=== PATIENT | female | born 1975 | race Caucasian/White ===

== ENCOUNTER → 2017-08-18 07:18 | Outpatient (CLI) | payer OTHER, SELFPAY ==
--- NOTE | 2017-08-18 07:26 | BI_ITS ---
MAMMOGRAPHY - BILATERAL SCREENING REASON FOR EXAM: Female, 41 years old. Routine annual screening examination. PERTINENT HISTORY: Non-contributory. TECHNIQUE: Digital bilateral breast lizbeth (3D mammographic acquisition) in the CC and MLO projections. 2-D mediolateral oblique (MLO) and craniocaudad (CC) views of both breasts were obtained. CAD: Full Field Digital Mammography with Computer Added Detection was performed. COMPARISON: Comparison is made with prior study dated August 17, 2016 and August 15, 2015. FINDINGS: Breast Composition: The breasts are heterogeneously dense, which may obscure small masses. There are no dominant masses or suspicious calcifications. No other significant abnormalities are identified. There has been no significant change since the prior study. BI/SCREENING MAMM (CAD), BILAT IMPRESSION: Stable bilateral screening mammogram. Yearly follow-up mammogram recommended. (A) ASSESSMENT CATEGORY: BIRADS Category 1: Negative. A letter regarding these results will be sent to the patient by the facility within 30 days. Approximately 10% of breast cancers are not detected by mammography. A normal mammogram should not delay biopsy of a clinically suspicious abnormality. [id number] Electronically Signed: Bladimir Chan MD at 14:39 EDT Tel [phone], Service support ,
== END ==
PROVIDERS: Family Provider Family Medicine; PCP Family Medicine; Visit Provider Obstetrics & Gynecology
DX: Z12.31 Encounter for screening mammogram for malignant neoplasm of breast (principal)
CPT/HCPCS: 77063; 77067

== ENCOUNTER → 2018-03-08 07:14 | Outpatient (CLI) | payer OTHER, SELFPAY ==
[2018-03-08 10:41] LABS: AST(SGOT) 20 U/L (15-37); Alanine Aminotransfer ALT/SGPT 29 U/L (13-56); Albumin, Serum 3.8 g/dL (3.2-5.0); Alkaline Phosphatase 69 U/L (45-117); Anion Gap 9 (5-15); BUN 16 mg/dL (7-18); BUN/Creat Ratio 18.1 RATIO (10-20); Calcium,Total 8.7 mg/dL (8.5-10.1); Chloride 102 mmol/L (98-107); Cholesterol 183 mg/dL (200); Creatinine, Serum 0.89 mg/dL (0.55-1.02); EST Glomerular Filtration Rate 74 mL/min (>60); Est Glom Filt Rate - Afr Amer 89 mL/min (>60); Globulin 3.8 g/dL (2.2-4.2); Glucose 88 mg/dL (74-106); High Density Lipoprotein 38 mg/dL; Potassium 3.7 mmol/L (3.5-5.1); Protein, Total 7.6 g/dL (6.4-8.2); Sodium Level 139 mmol/L (136-145); Triglycerides 119 mg/dL; Very Low Density Lipoprotein 24 mg/dL (5-40)
== END ==
PROVIDERS: Family Provider Family Medicine; PCP Family Medicine; Referring Provider Family Medicine; Visit Provider Family Medicine
DX: I10 Essential (primary) hypertension (principal)
CPT/HCPCS: 36415; 80053; 80061

== ENCOUNTER 2018-08-19 14:03 | Observation (INO) | payer OTHER, SELFPAY ==
[2018-08-19] VITALS (11 sets, daily range): BP systolic 119–148; BP diastolic 70–91; PULSE 58–99; RESP 16–18; TEMP 36.1–37.3; O2SAT 96–98; BMI 36.5
--- NOTE | 2018-08-19 14:21 | CT_ITS ---
We are attempting to reach Rossy Trimble MD to discuss findings. An addendum with communication details will be sent when the communication is complete. STUDY: CT ABDOMEN AND PELVIS WITH CONTRAST REASON FOR EXAM: Female, 42 years old. Right lower quadrant pain RADIATION DOSAGE (If Supplied By Facility): CTDIvol = ( 1.82 ) mGy, DLP = ( 1297.83 ) mGycm TECHNIQUE: Transaxial images were obtained from the dome of the diaphragm to the symphysis pubis with oral contrast. 100ML IV/Oral Isovue 300 was administered. Sagittal and coronal images were reconstructed. Individualized dose optimization techniques were used for this CT. COMPARISON: None. FINDINGS: The visualized lung bases are unremarkable. The visualized portions of the heart are within normal limits. Normal liver. Normal gallbladder and extrahepatic biliary system. Normal spleen. Normal pancreas. Normal bilateral adrenal glands. 2 cm right renal cyst. Normal left kidney. Normal visualized stomach. Normal small intestine. Normal colon. Acute appendicitis is noted. The appendix measures 14 mm in diameter with adjacent fatty stranding. It is best seen on sagittal image 65. Normal abdominal aorta. Normal inferior vena cava. Normal retroperitoneum. Normal urinary bladder. Normal abdominal wall. Normal osseous structures. CT/Abdomen/Pelvis WITH Contrast IMPRESSION: Acute appendicitis. No free air or abscess is seen. Electronically Signed: Eligio Jackson MD at 16:36 EDT Tel , Service support ,
--- NOTE | 2018-08-19 14:23 | ED.DCSUM_ITS ---
- ER Visit Summary Date of Service: 08/19/18 Chief Complaint: Abdominal pain History of Present Illness: The patient is a 42 F presenting with abdominal pain. She states this started last night. Pain is in the right lower quadrant. She tried ibuprofen at home. She denies nausea, vomiting, diarrhea. Denies constipation. Denies urinary complaints. Denies fever. Physical Examination: Vitals are stable. Patient is afebrile. Alert no acute distress. HEENT exam is unremarkable. Neck is supple. Lungs are clear and equal bilaterally. Heart is regular rate and rhythm. Abdomen is soft right lower quadrant tenderness with no rebound or guarding Extremities are unremarkable. Skin is warm and dry. No focal neurologic deficit. Remainder of exam is unremarkable. Emergency department course and Treatment: Patient declined pain medication. CBC, chemistries unremarkable other than potassium 3.1. Liver lipase are normal. Urinalysis unremarkable. HCG negative. CT abdomen pelvis shows appendicitis. Patient was given Zosyn IV. Discussed with Dr. Ridley who will evaluate the patient in the ED. Disposition: Admission Impression: Acute appendicitis This note was generated with [employer] dictation software. It may contain incorrect words, spelling, and punctuation that were not noted in review of the chart prior to signing ED Disposition - Plan for ED Patient: Referrals: Eron Martínez MD [Primary Care Provider] -
[2018-08-19 14:29] LABS: Mucous, Urine 0 SEEN /hpf (<or=2+); Red Blood Cells-Urine 0 SEEN /hpf (0-5)
[2018-08-19 14:40] LABS: Absolute Neutrophil Count 4.1 X10^3/uL (2.0-7.7); Basophil# 0.03 X10^3/uL; Basophil% 0.4 % (0-1); Eosinophils% 2.5 % (0-5); Hemoglobin 12.7 g/dl (12.0-15.0); Lymphocyte % 38.6 % (19-41); Mean Corp Hgb Conc 34.3 g/gl (32-36); Mean Corpuscular Hgb 30.3 pg (27.0-32.0); Mean Corpuscular Volume 88.3 fL (81-99); Mean Platelet Vol. 9.8 fl (6.2-12.0); Monocyte# 0.65 X10^3/uL; Monocyte% 8.1 % (0-10); Neutrophil # 4.05 X10^3/uL (2.7-7.7); Neutrophil % 50.3 % (47-70); Platelet Count 231 K/mm3 (150-450); RBC Distribution Width CV 12.7 % (11.6-14.6); RBC Distribution Width SD 41.1 fl (35.1-43.9); Red Blood Count 4.19 M/mm3 (4.2-5.4)
[2018-08-19 14:42] LABS: Color, Urine Yellow (Yellow); Glucose, Dipstick Normal (Normal); Ketone-Dipstick Negative (Negative); Leukocyte Esterase-Dipstick 25 /ul (Negative); Nitrite-Dipstick Negative (Negative); Occult Blood-Urine Negative /ul (Negative); Protein-Dipstick Negative (Negative); Specific Gravity, Urine 1.025 (1.002-1.030); Urine Bilirubin Dipstick Negative (Negative); Urine Clarity Clear (Clear); Urine Urobilinogen Normal (Normal)
[2018-08-19 14:45] LABS: Bacteria RARE /hpf (None Seen); Squamous Epithelial Cells - UA 0-5 SEEN /hpf (5-10); White Blood Cells 0-5 SEEN /hpf (0-5)
[2018-08-19 14:45] LABS: POSITIVE COUNT NO; POSITIVE DIFFERENTIAL NO; POSITIVE MORPHOLOGY NO
[2018-08-19 14:50] LABS: Internal QC Validated? YES +Cl - CLEAR BKGD
[2018-08-19 14:51] LABS: Pregnancy, Serum, hCG Quali. NEGATIVE Negative
[2018-08-19 15:00] LABS: AST(SGOT) 16 U/L (15-37); Alanine Aminotransfer ALT/SGPT 19 U/L (13-56); Albumin, Serum 3.6 g/dL (3.2-5.0); Alkaline Phosphatase 91 U/L (45-117); Anion Gap 7 (5-15); BUN 13 mg/dL (7-18); BUN/Creat Ratio 15.5 RATIO (10-20); Calcium,Total 8.4 mg/dL (8.5-10.1); Chloride 104 mmol/L (98-107); Creatinine, Serum 0.84 mg/dL (0.55-1.02); EST Glomerular Filtration Rate 79 mL/min (>60); Est Glom Filt Rate - Afr Amer 95 mL/min (>60); Estimated Creatinine Clearance 71.43 ml/min; Globulin 3.6 g/dL (2.2-4.2); Glucose 107 mg/dL (74-106); Lipase 109 U/L (73-393); Potassium 3.1 mmol/L (3.5-5.1); Protein, Total 7.2 g/dL (6.4-8.2); Sodium Level 139 mmol/L (136-145)
--- NOTE | 2018-08-19 17:33 | NURSING ---
DR ROSENBERG SURGERY APPENDICITIS
--- NOTE | 2018-08-19 17:58 | NURSING ---
DR ROSENBERG IN ER
--- NOTE | 2018-08-19 18:15 | HP.PCM_ITS ---
History and Physical Date of Admission: 08/19/18 Chief Complaint: abdominal pain History of Present Illness: 42 y/o obese WF presents with complaint of abdominal pain. Noted in the right lower quadrant, it began around 11pm last night and progressed through to this morning. She took some ibuprofen last night but this did not help much. Presented to the ED at [facility]. WBC normal at 8K with normal differential. CT scan obtained - appendix is 14mm in diameter with fatty stranding. Patient is afebrile in the ED. Denies previous history of such abdominal pain Past Medical History: hypertension Past Surgical History: Tonsillectomy endometrial ablation Medications: lisinopril/hctz effexor Allergies: Has no known drug allergies Social history: TOB use denies Review of Systems: General - denies fevers Cardiovascular denies chest pain, denies history of heart attack Pulmonary denies shortness of breath, denies coughing up blood Gastrointestinal as per HPI, denies blood in stools Neurological denies seizures, denies history of stroke Genitourinary denies burning with urination, denies blood in urine Hematological denies spontaneous/prolonged bleeding Skin denies open non healing wounds Musculoskeletal denies history of fractures Endocrine denies diabetes Psychological denies hallucinations Physical examination: Vital signs Temp 98.2F HR 78 RR 18 BP 129/86 Ht: 5'3 Wt: 206# General WD/WN WF in no apparent distress, alert and oriented, not septic appearing HEENT Normocephalic. EOM intact with sclera clear and no icterus noted. Neck is supple with no jugular venous distention noted. Trachea is midline. Lungs normal breath sounds in all lung field. No rales/rhonchi/wheezing noted. No labored breathing noted, such as retractions. No cough heard. Heart normal S1 and S2 auscultated. No rubs/clicks/murmurs noted. Normal size and location by auscultation. Abdomen soft but tender in the right lower quadrant with rebound, decreased bowel sounds, difficult to determine if any masses due to body habitus Extremities no calf tenderness noted. No pitting edema noted. Genitourinary/Rectal deferred Skin normal skin integrity. Neurological non focal Psychological normal affect, patient is calm and appropriate Impression: right lower quadrant abdominal pain dilated appendix with fatty stranding by CT scan Discussion/Plan: I have discussed the above with the patient. I have offered the patient the procedure of laparoscopic appendectomy. I have explained the procedure to the patient. I have counseled the patient as to the risks of the procedure, including but not limited to: infection, bleeding, injury to any blood vessels/nerves, scar tissue, injury to any intrabdominal organs, injury to kidney/ureters, injury to bowel/bladder, intraabdominal abscess/bleeding, hernias at incisional sites, wound infections, possible open procedure, complications of anesthesia, postoperative pneumonia/cardiac problems/blood clots etc. the patient understands. She wishes to proceed. I have answered all questions to the patient?s satisfaction and the patient has no further questions.
--- NOTE | 2018-08-19 19:20 | APP_PTH ---
PATIENT: MACRINA SALDIVAR LOC: MS3 U#:[id number] AGE/SX: 42/F ROOM: MS305 RE08/19/[address]: Dr. Melodie Ridley MD : 1975 BED: 1 DIS: 08/20/2018 SPEC #: [id number] RECD: 08/21/18 11:23 STATUS: TOVA REQ #: [id number] MINDY: 08/19/18 19:[address]: Melodie Ridley DEPT: SURGICAL PATHOLOGY RECD BY: Edgar Sheldon ENTERED: 08/21/18 11:24 SP TYPE: APPENDIX OTHR DR: Dr. Chapincito Martínez MD Tissues: Appendix, NOS Procedures: Surgery Specimen Level III HEADER OPERATION: Laparoscopic appendectomy PRE-OP DIAGNOSIS: Acute appendicitis, right lower quad pain TISSUE SUBMITTED: Appendix MICROSCOPIC DIAGNOSIS Appendix, appendectomy: Acute and chronic appendicitis. Acute serositis. Fibrofatty obliteration of distal appendiceal lumen. AM:osvaldo 08/22/18 MICROSCOPIC DESCRIPTION Slides are reviewed. GROSS DESCRIPTION Received is one container labeled with the patient's name and designated appendix. The specimen consists of an appendix measuring 7 cm in length and 0.8 cm in average diameter. No gross perforations are identified. Serial sections reveal a partially obliterated lumen. No mass lesions are identified. [employer] sections are submitted in one cassette. / AM:osvaldo 08/21/18 TC:2 CPT: 44796
--- NOTE | 2018-08-19 19:31 | OP.PCM_ITS ---
Report of Operation Date of Procedure: 08/19/18 Pre-Operative Diagnosis: abnormal appendix by CT scan, right lower quadrant abdominal pain Post-Operative Diagnosis: appendicitis - not perforated Surgery/Procedure Performed:: laparoscopic appendectomy Description of Surgical Findings:: dilated appendix erythematous - not perforated, patient with difficult airway Type of Anesthesia:: General Anesthesiologist: Logan Narayanan Specimen's removed: appendix Drains: none Estimated Blood Loss (mL): 30 Fluids Replaced: 1.2 liter of RL Description of Procedure: After informed consent was obtained, the patient was brought into the operating room. Appropriate time out protocol was followed. She was then placed in the supine position on the operating table. The patient was then placed under general anesthesia. The patient?s abdomen was then prepped with a sterile surgical skin preparation and sterile surgical drapes were placed. The infraumbilical skin fold was grasped with penetrating clamps and the skin and subcutaneous tissues were infiltrated with 0.25% marcaine with epinephrine. A skin incision was then made. A Veress needle was then inserted into the intraabdominal cavity and checked to be in the proper position with a normal saline drop test. A CO2 pneumoperitoneum was then created. Once this was achieved, the Veress needle was removed and a 5 mm trocar was placed in its stead. A 5 mm laparoscope was then inserted into the trocar. Careful examina tion of the intraabdominal contents was then done. There was no evidence of injury to any internal organs from placement of the Veress needle or the trocar. Under direct visualization, a 12mm suprapubic trocar and a 5mm left lower quadrant trocar was then placed into the intraabdominal cavity. The skin and subcutaneous tissues at these sites were first infiltrated with 0.25% marcaine with epinephrine. Attention was then directed to the right lower quadrant. The appendix was visualized. It was grossly distended and erythematous distally. The mesentery of the appendix was taken down by cauterizing the tissue from the free edge to the base of the appendix with the Enseal device. Once the base of the appendix was freed of surrounding tissues, then the linear gastrointestinal stapling device was brought into the abdominal cavity via the 12mm port and placed across the base of the appendix. The stapling device was fired, thus stapling across the base of the appendix and transecting it simultaneously. The appendix was then placed in an Endobag and this was brought out through the suprapubic trocar. The appendix was then forwarded to Pathology for analysis. The appendiceal stump was carefully examined. There was no evidence of any active bleeding or fecal leakage. The surrounding tissues were also examined and there was no evidence of any active bleeding or fecal/bile leakage. The intraabdominal cavity was examined and there was no evidence of further inflammation or tissue abnormality. There was no evidence of any peritoneal fluid. The CO2 pneumoperitoneum was released and all trocars were removed intact. The suprapubic fascia was reapproximated with a figure-of-8 vicryl suture. All skin incisions were reapproximated with monocryl suture. Cavilon and steristrips were applied to reinforce skin closure and proper sterile dressings were placed. The patient was then extubated and brought to the Recovery Room in stable condition. - Complications none noted - Admit VTE Documentation VTE Present on Admission: Yes VTE Mechan Device Prophylaxis: SCD's
[2018-08-19] MEDS: Bupiv/Epi 0.25% 30 ML Vial (20:10)
[2018-08-19] MEDS: Scopolamine 1mg/72hr Patch 1 PATCH TD (20:30)
[2018-08-19] MEDS: HYDROmorphone 0.5 MG/0.5 ML SYRINGE IV (20:35)
[2018-08-19] MEDS: Morphine 4 MG/ML Syringe IV ×2 (21:19→23:16)
[2018-08-20 01:49] VITALS: BP 114/81; PULSE 85; RESP 16; TEMP 37.1; O2SAT 97
[2018-08-20 03:18] VITALS: BP 119/76; PULSE 78; RESP 18; TEMP 37; O2SAT 96
[2018-08-20] MEDS: 0.9% NaCl Peripheral Flush Adult/Peds IV (03:22)
[2018-08-20] MEDS: Morphine 4 MG/ML Syringe IV (03:22)
[2018-08-20] MEDS: HYDROcodone Bitartrate/Apap 5/325 Tablet PO ×3 (06:29→14:44)
[2018-08-20 07:46] VITALS: BP 113/79; PULSE 86; RESP 18; TEMP 37.8; O2SAT 91
--- NOTE | 2018-08-20 07:58 | NURSING ---
Assesment complete, see findings. pt assisted to bathroom where she is attempting to urinate. Pt did not have Incentive Spirometer. Given and will explain how to use when she is out of the bathroom.
[2018-08-20] MEDS: Ibuprofen 600 MG Tablet PO (08:57)
--- NOTE | 2018-08-20 09:03 | NURSING ---
pt walked in the navarrete with this nurse assistance then was able to urinated. First time she attempted to urinate this morning, pt unable to urinate.
[2018-08-20 10:00] VITALS: BP 129/95; PULSE 78; RESP 18; TEMP 37.1; O2SAT 96
--- NOTE | 2018-08-20 10:42 | PCM.PN.SRG ---
Subjective: patient with multiple complaints this morning - has headache, has low grade temp of 100F, has cramping just above left ankle, has right shoulder and upper quadrant abdominal gas pain able to urinate and tolerated liquids has chipped tooth probably from intubation - Physical Exam General: Alert, Oriented x3 Oral: Moist Mucosa Neck: Supple Lungs: Normal air movement Abdomen: Soft, - - dressings intact, minimal seepage Vital Signs Temp Pulse Resp BP Pulse Ox 100.0 F H 86 18 113/79 91 08/20/18 07:46 08/20/18 07:46 08/20/18 07:46 08/20/18 07:46 08/20/18 07:46 Oxygen Flow Rate (L/min) 1 Oxygen Delivery Method Room Air Weight: 93.44 kg Body Mass Index (BMI) 36.5 Intake and Output for Last 24 Hours 08/18/18 08/19/18 08/20/18 23:59 23:59 23:59 Intake Total 1500 / 1500 Output Total 150 / 150 Balance 1500 / 1500 -150 / -150 Laboratory Tests Past 24 Hrs 08/19/18 08/19/18 08/19/18 14:00 14:30 14:30 WBC 8.0 RBC 4.19 L Hgb 12.7 Hct 37.0 MCV 88.3 MCH 30.3 MCHC 34.3 RDW 12.7 RDW Differential 41.1 Plt Count 231 MPV 9.8 Immature Gran % (Auto) 0.100 Neut % (Auto) 50.3 Lymph % (Auto) 38.6 [place] % (Auto) 8.1 Eos % (Auto) 2.5 Baso % (Auto) 0.4 Absolute Neuts (auto) 4.1 Absolute Lymphs (auto) 3.10 Total Counted Not Reportable Sodium Potassium Chloride Carbon Dioxide Anion Gap BUN Creatinine Estim Creat Clear Calc Est GFR (MDRD) Af Amer Est GFR (MDRD) Non-Af BUN/Creatinine Ratio Glucose Calcium Total Bilirubin AST ALT Alkaline Phosphatase Total Protein Albumin Globulin Albumin/Globulin Ratio Lipase Serum , Qual NEGATIVE Urine Color Yellow Urine Clarity Clear Urine pH 5.0 Ur Specific [place] 1.025 Urine Protein Negative Urine Glucose (UA) Normal Urine Ketones Negative Urine Occult Blood Negative Urine Nitrite Negative Urine Bilirubin Negative Urine Urobilinogen Normal Ur Leukocyte Esterase 25 H Urine RBC 0 SEEN Urine WBC 0-5 SEEN Ur Squamous Epith Cells 0-5 SEEN Urine Bacteria RARE Urine Mucus 0 SEEN 08/19/18 14:30 WBC RBC Hgb Hct MCV MCH MCHC RDW RDW Differential Plt Count MPV Immature Gran % (Auto) Neut % (Auto) Lymph % (Auto) [place] % (Auto) Eos % (Auto) Baso % (Auto) Absolute Neuts (auto) Absolute Lymphs (auto) Total Counted Sodium 139 Potassium 3.1 L Chloride 104 Carbon Dioxide 28.0 Anion Gap 7 BUN 13 Creatinine 0.84 Estim Creat Clear Calc 71.43 Est GFR (MDRD) Af Amer 95 Est GFR (MDRD) Non-Af 79 BUN/Creatinine Ratio 15.5 Glucose 107 H Calcium 8.4 L Total Bilirubin 0.20 AST 16 ALT 19 Alkaline Phosphatase 91 Total Protein 7.2 Albumin 3.6 Globulin 3.6 Albumin/Globulin Ratio 1.0 Lipase 109 Serum , Qual Urine Color Urine Clarity Urine pH Ur Specific [place] Urine Protein Urine Glucose (UA) Urine Ketones Urine Occult Blood Urine Nitrite Urine Bilirubin Urine Urobilinogen Ur Leukocyte Esterase Urine RBC Urine WBC Ur Squamous Epith Cells Urine Bacteria Urine Mucus Medical Necessity - Tobacco Use Smoking Status: Never smoker Assessment/Plan Impression: POD#1 s/p laparoscopic appendectomy Plan: Follow up with me on Tuesday, patient to call for time Encouraged incentive spirometry encouraged ambulation take in po foods as tolerated, drink plenty of fluids
--- NOTE | 2018-08-20 10:46 | DCINST_ITS ---
Discharge Diet: No Restrictions - avoid carbonated beverages for 1-2 days drink plenty of fluids Discharge Activity: Return to Normal Activity, May not drive while taking narcotic pain medications. Return to work on:: 08/28/18 - as tolerated Lifting Restrictions: no lifting greater than 20 pounds for 2 weeks Call your doctor if your incision/area has: Continuous Slow Oozing, Foul Smelling Discharge Call your doctor if you observe: Fever of 101 or Higher Additional Dressing/Incision Instructions:: Leave dressings in place. May get wet in shower - if saturated, may remove but leave steristrips on. Do not soak - no tub baths/swimming Additional Instructions: Recommended pain medication regimen: take acetaminophen 650 mg then in 3-4 take 600 mg of ibuprofen, then in 3-4 hours take 650 mg acetaminophen, then in 3-4 hours take 600 mg ibuprofen, and so on take narcotic medication for breakthrough pain and at night Medications to take at Discharge Lisinopril/Hydrochlorothiazide [Lisinopril-Hctz 10-12.5 mg Tab] 1 tablet PO DAILY 08/19/18 Venlafaxine HCl [Effexor Xr] 75 mg PO DAILY 08/19/18 Oxycodone [Oxyir] 5 mg PO Q8H PRN PRN 5 Days #15 tab 08/20/18 Allergies/Adverse Reactions: Allergies No Known Allergies Allergy (Verified 08/19/18 14:06) The following prescriptions were given: Oxycodone [Oxyir] 5 mg PO Q8H PRN PRN 5 Days #15 tab PRN Reason: Mod-Severe Pain (4-10/10) Primary Care Physician: Eron Martínez MD [Primary Care Provider] - Test Results: Test results from this visit will be discussed in further detail at your follow- up appointment, if applicable. Please Follow Up With: Melodie Ridley MD - When: to be seen on August 25, please call for time, thank you
--- NOTE | 2018-08-20 10:58 | NURSING ---
walking in navarrete at this time. Voided again recently.
[2018-08-20 14:45] VITALS: BP 140/92; PULSE 99; RESP 18; TEMP 37.5; O2SAT 93
== END 2018-08-20 15:20 | disposition home or self-care (01) ==
LOC: ED 14:52 → SDC 18:23 → AC 18:31 → MS3 19:43
PROVIDERS: Admitting Provider Surgery; Emergency Provider Emergency Medicine; Family Provider Family Medicine; PCP Family Medicine; Visit Provider Surgery
PROC: 0DTJ4ZZ Resection of Appendix, Percutaneous Endoscopic Approach (ICD-10-PCS; CPT 44970; principal; 2018-08-19 19:00)
DX: K35.80 Unspecified acute appendicitis (principal); I10 Essential (primary) hypertension; Z79.899 Other long term (current) drug therapy; E66.9 Obesity, unspecified; Z68.36 Body mass index [BMI] 36.0-36.9, adult; Z71.3 Dietary counseling and surveillance
CPT/HCPCS: 44970; 74177; 80053; 81001; 83690; 84703; 85025; 88304; 96365; 96366; 96375; 96376; 99218; 99284; J7030; Q9967; A4216; C1760; G0378; J2405

== ENCOUNTER → 2018-09-13 07:31 | Outpatient (CLI) | payer OTHER, SELFPAY ==
[2018-08-19 21:30] VITALS: BMI 36.5
--- NOTE | 2018-09-13 06:57 | BI_ITS ---
MAMMOGRAPHY - BILATERAL SCREENING REASON FOR EXAM: Female, 43 years old. Routine annual screening examination. PERTINENT HISTORY: Non-contributory. TECHNIQUE: Digital bilateral breast lizbeth (3D mammographic acquisition) in the CC and MLO projections. 2-D mediolateral oblique (MLO) and craniocaudad (CC) views of both breasts were obtained. CAD: Full Field Digital Mammography with Computer Added Detection was performed. COMPARISON: Comparison is made with prior study dated August 18, 2017 and August 17, 2016. FINDINGS: Breast Composition: The breasts are heterogeneously dense, which may obscure small masses. There are no dominant masses or suspicious calcifications. No other significant abnormalities are identified. There has been no significant change since the prior study. BI/SCREENING MAMM (CAD), BILAT IMPRESSION: Stable bilateral screening mammogram. Yearly follow-up mammogram recommended. (A) ASSESSMENT CATEGORY: BIRADS Category 1: Negative. A letter regarding these results will be sent to the patient by the facility within 30 days. Approximately 10% of breast cancers are not detected by mammography. A normal mammogram should not delay biopsy of a clinically suspicious abnormality. [id number] Electronically Signed: Bladimir Chan, at 8:11 EDT , Service support ,
== END ==
PROVIDERS: Family Provider Family Medicine; PCP Family Medicine; Referring Provider Obstetrics & Gynecology; Visit Provider Obstetrics & Gynecology
DX: Z12.31 Encounter for screening mammogram for malignant neoplasm of breast (principal)
CPT/HCPCS: 77063; 77067

== ENCOUNTER → 2018-12-07 10:53 | Outpatient (CLI) | payer OTHER, SELFPAY ==
[2018-08-19 21:30] VITALS: BMI 36.5
--- NOTE | 2018-12-07 11:24 | MRI_ITS ---
STUDY: MRI RIGHT ANKLE WITHOUT CONTRAST REASON FOR EXAM: Female, 43 years old. Pain. Achilles tendinitis. TECHNIQUE: Standardized fat and water weighted pulse sequences were obtained in all 3 orthogonal planes. COMPARISON: None. FINDINGS: Normal subcutis adipose space. Normal posterior tibialis tendon. Normal flexor digitorum longus tendon. Normal flexor hallucis longus tendon. There is tendinosis with thickening of the peritoneum. There is flattening of the peroneal brevis. There is mild fluid in the peroneal tendon sheath. Normal tibialis anterior tendon. Normal extensor hallucis longus tendon. Normal extensor digitorum longus tendons. There is tendinosis of the Achilles tendon with distal tendon thickening, series 5 image and , but without a partial, intratendinous, or full-thickness tear. Normal plantar fascia. Normal plantar calcaneal tubercles. Normal intrinsic muscles of the rearfoot. Normal distal tibiofibular syndesmotic ligamentous complex. Normal lateral ligamentous complex. Normal subtalar ligaments and sinus tarsi. Normal deltoid ligamentous complexes. Normal plantar calcaneonavicular (spring) ligament. Normal tibiotalar articulation. Normal talar dome. Normal subtalar articulations. Normal talonavicular articulation. Normal calcaneocuboid articulation. Normal navicular-cuneiform articulations. MRI/Lower Ext Joint Only (Routine) IMPRESSION: Tendinosis of the distal Achilles. No focal tear. Tenosynovitis of the peroneal longus and brevis. Electronically Signed: Derek Fall MD at 17:22 EDT , Service support ,
== END ==
PROVIDERS: Family Provider Family Medicine; PCP Family Medicine; Referring Provider Family Medicine; Visit Provider Family Medicine
DX: M76.61 Achilles tendinitis, right leg (principal)
CPT/HCPCS: 73721

== ENCOUNTER 2019-04-12 14:30 | Outpatient (RCR) | payer OTHER, SELFPAY ==
[2018-08-19 21:30] VITALS: BMI 36.5
--- NOTE | 2019-03-12 09:12 | HP.PTEVAL ---
Patient's Visit Information MACRINA SALDIVRA is a 43 year old F referred to Physical Therapy by Rogerio Zuleta DPM with a diagnosis of B achilles tendonitis. Date of Evaluation: 03/09/19 Physical Therapist: Nolan Villa DPT - Visit Plan Frequency: 2x /Week Duration: 4-6 Weeks Plan: Start with DN, jyoti, DF stretching. Once pain has reduced add in eccentrics for G/S complex. - Subjective Findings: Pt is here today for her initial evaluation with diagnosis of B achilles tendonitis. She has had increased in pain in her R achilles for ~1 year, worsening over the past 6 months. 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 She does have increased pain with walking and initial steps are the worst. Pt. has no pain at rest. She wears night splints and has been doing EPAT machine with positive results. She is doing a another round of EPAT in conjuction with PT this time. Pt. is still doing crossfit, but altering movements. She has a desk job throughout the day. - Pain R achilles Pain Intensity (Out of 10): 3 Pain Intensity Range: 1, 6 L achilles Pain Intensity (Out of 10): 4 Pain Intensity Range: 3, 6 - Objective POSTURE: Pt. has normal wt. shifting, she has higher arches and slight equinus positioning of B feet. (likely due to G/S tightness.). PALPATION: Pt. ahs pain at B achilles tendons, worse at tendon/bone junction, rather than tendon muscle junction. NEURO: normal throughout. ROM: Pt. has normal bilatearl ankle ROM, except, DF bilaterally. R DF- 8deg, L DF 9deg. TIght HS noted as well. MMT: 5/5 throughout, patient did have increased symptoms with heel raises. GAIT: pt. has slight antalgic pattern, early heel off. Pt. has increased calcaneus varus positioning during heel strike and stance phase. STAIRS: normal, except early heel off with descending. - Goals Goal 1:: Pt. to be I with HEP. Goal Time Frame: 4-6 Weeks Goal 2:: Pt. to have increased B ankle DF to 15deg without increase in symptoms. Goal Time Frame: 4-6 Weeks Goal 3:: Pt. to be able walk without increase in symptoms. Goal Time Frame: 4-6 Weeks Goal 4:: Pt. to be able to to complete 10+ heel raises SL, bilaterally without increase in symptoms. Goal Time Frame: 4-6 Weeks Goal 5:: Pt. to complete all crossfit and gym exercises without increase in symptoms. Goal Time Frame: 4-6 Weeks - Rehabilitation Potential Physical Therapy Diagnosis: Pt. has signs and symptoms consistent with B achilles tendonitis. Pt. has MRI confirming this on her R LE. Pt. does have tightness in B achilles tendons. I plan to work on stretching, DNjyoti. progressing to strengthening for tendon rebuilding. Rehabilitation Potential: Excellent - Anticipated Interventions Patient/Client Instruction: Educate patient on: Condition, Plan of Care, Risk Factors, Benefits of Fitness Program For the Purpose of:: To facilitate caregiver knowledge, To improve self management, To prevent re-injury, To improve ability to perform tasks related to life management Therapeutic Exercise to Include: Strength training, Power training, Body mechanics, Flexibilty training, Gait and locomotor training, Passive ROM, Active ROM For the Purpose of:: To decrease pain, To decrease swelling/inflammation, To increase ROM, To improve nutrient delivery to tissue, To increase oxygenation perfusion, To improve muscle performance and motor function, To improve health of tissue, To decrease soft tissue restriction, To increase flexibility/ROM Manual Therapy Techniques to Include: Mobilization, Passive ROM, Functional dry needling, Soft tissue mobilization For the Purpose of:: To decrease pain, To decrease swelling/inflammation, To increase ROM, To improve nutrient delivery to tissue, To improve muscle performance and motor function, To improve health of tissue, To decrease soft tissue restriction Thank you for the opportunity to evaluate your patient. For Medicare and Medicare HMO plans, please review the plan of care and approve it. It will need to be FAXED BACK to us at [phone] for Medicare purposes. For Medicare only, by signing this I certify the plan of care. Please let me know if there are questions or concerns regarding this plan of care. Physician Signature: Date:
--- NOTE | 2019-08-21 08:14 | HP.PT.NRP ---
MACRINA SALDIVAR was seen in my office for initial evaluation on 03/09/19. The following Plan of Care was established for this patient: Initial Frequency: 2x /Week Initial Duration: 4-6 Weeks Patient/Client Instruction: Educate patient on: Condition, Plan of Care, Risk Factors, Benefits of Fitness Program For the Purpose of:: To facilitate caregiver knowledge, To improve self management, To prevent re-injury, To improve ability to perform tasks related to life management Therapeutic Exercise to Include: Strength training, Power training, Body mechanics, Flexibilty training, Gait and locomotor training, Passive ROM, Active ROM For the Purpose of:: To decrease pain, To decrease swelling/inflammation, To increase ROM, To improve nutrient delivery to tissue, To increase oxygenation perfusion, To improve muscle performance and motor function, To improve health of tissue, To decrease soft tissue restriction, To increase flexibility/ROM Manual Therapy Techniques to Include: Mobilization, Passive ROM, Functional dry needling, Soft tissue mobilization For the Purpose of:: To decrease pain, To decrease swelling/inflammation, To increase ROM, To improve nutrient delivery to tissue, To improve muscle performance and motor function, To improve health of tissue, To decrease soft tissue restriction This patient was last seen in our office 03/27/19. Pertinent comments regarding their Physical therapy will appear below: Pt. was seen for her plantar fasciatis. Pt. was doing better at her last visit and had resume gym work outs. Pt. has not been seen in several months and will be DC from PT at this point in time. At this point I will be discontinuing this patient from physical therapy. I would be happy to see this patient again in the future if found appropriate by the physician. Thank you! Nolan Villa, LINDA
== END 2019-04-12 19:00 | disposition home or self-care (01) ==
LOC: PT 14:30
PROVIDERS: Family Provider Family Medicine; PCP Family Medicine; Referring Provider Podiatrist; Visit Provider Podiatrist
DX: M72.2 Plantar fascial fibromatosis (principal)
CPT/HCPCS: 97110; 97140; 97161

== ENCOUNTER → 2019-07-19 07:03 | Outpatient (CLI) | payer OTHER, SELFPAY ==
[2018-08-19 21:30] VITALS: BMI 36.5
[2019-07-19 10:13] LABS: AST(SGOT) 27 U/L (15-37); Alanine Aminotransfer ALT/SGPT 35 U/L (13-56); Albumin, Serum 3.7 g/dL (3.2-5.0); Alkaline Phosphatase 81 U/L (45-117); Anion Gap 6 (5-15); BUN 19 mg/dL (7-18); BUN/Creat Ratio 21.2 RATIO (10-20); Calcium,Total 8.9 mg/dL (8.5-10.1); Chloride 104 mmol/L (98-107); Cholesterol 174 mg/dL (200); EST Glomerular Filtration Rate 72 mL/min (>60); Est Glom Filt Rate - Afr Amer 87 mL/min (>60); Globulin 3.6 g/dL (2.2-4.2); Glucose 90 mg/dL (74-106); High Density Lipoprotein 38 mg/dL; Potassium 3.3 mmol/L (3.5-5.1); Protein, Total 7.3 g/dL (6.4-8.2); Sodium Level 139 mmol/L (136-145); Triglycerides 90 mg/dL; Very Low Density Lipoprotein 18 mg/dL (5-40)
== END ==
PROVIDERS: PCP Family Medicine; Referring Provider Family Medicine; Visit Provider Family Medicine
DX: I10 Essential (primary) hypertension (principal)
CPT/HCPCS: 36415; 80053; 80061

== ENCOUNTER → 2019-11-08 07:03 | Outpatient (CLI) | payer OTHER, SELFPAY ==
[2018-08-19 21:30] VITALS: BMI 36.5
--- NOTE | 2019-11-08 07:04 | BI_ITS ---
MAMMOGRAPHY - BILATERAL SCREENING REASON FOR EXAM: Female, 44 years old. Routine annual screening examination. PERTINENT HISTORY: Non-contributory. TECHNIQUE: Digital bilateral breast amita (3D mammographic acquisition) in the CC and MLO projections. 2-D mediolateral oblique (MLO) and craniocaudad (CC) views of both breasts were obtained. CAD: Full Field Digital Mammography with Computer Added Detection was performed. COMPARISON: Comparison is made with prior study dated September 13, 2018 and August 19, 2007. FINDINGS: Breast Composition: The breasts are heterogeneously dense, which may obscure small masses. There are no dominant masses or suspicious calcifications. No other significant abnormalities are identified. There has been no significant change since the prior study. BI/SCREEN MAMM (CAD) W/AMITA BILAT IMPRESSION: Stable bilateral screening mammogram. Yearly follow-up mammogram recommended. (A) ASSESSMENT CATEGORY: BIRADS Category 1: Negative. A letter regarding these results will be sent to the patient by the facility within 30 days. Approximately 10% of breast cancers are not detected by mammography. A normal mammogram should not delay biopsy of a clinically suspicious abnormality. [id number] Electronically Signed: Bladimir Chan, at 8:48 EDT , Service support ,
== END ==
PROVIDERS: PCP Family Medicine; Referring Provider Obstetrics & Gynecology; Visit Provider Obstetrics & Gynecology
DX: Z12.31 Encounter for screening mammogram for malignant neoplasm of breast (principal)
CPT/HCPCS: 77063; 77067

== ENCOUNTER → 2020-08-04 08:28 | Outpatient (CLI) | payer OTHER, SELFPAY ==
[2018-08-19 21:30] VITALS: BMI 36.5
[2020-08-04 10:16] LABS: AST(SGOT) 23 U/L (15-37); Alanine Aminotransfer ALT/SGPT 31 U/L (13-56); Albumin, Serum 3.7 g/dL (3.2-5.0); Alkaline Phosphatase 81 U/L (45-117); Anion Gap 5 (5-15); BUN 12 mg/dL (7-18); BUN/Creat Ratio 13.7 RATIO (10-20); Calcium,Total 8.6 mg/dL (8.5-10.1); Chloride 103 mmol/L (98-107); Cholesterol 216 mg/dL (200); Creatinine, Serum 0.88 mg/dL (0.55-1.02); EST Glomerular Filtration Rate 74 mL/min (>60); Est Glom Filt Rate - Afr Amer 89 mL/min (>60); Globulin 3.8 g/dL (2.2-4.2); Glucose 99 mg/dL (74-106); High Density Lipoprotein 41 mg/dL; Potassium 3.7 mmol/L (3.5-5.1); Protein, Total 7.5 g/dL (6.4-8.2); Sodium Level 138 mmol/L (136-145); Triglycerides 136 mg/dL; Very Low Density Lipoprotein 27 mg/dL (5-40)
[2020-08-04 10:24] LABS: Vitamin D,25 Hydroxy 16.2 ng/mL
== END ==
PROVIDERS: PCP Family Medicine; Visit Provider Family Medicine
DX: Z13.21 Encounter for screening for nutritional disorder (principal); I10 Essential (primary) hypertension
CPT/HCPCS: 36415; 80053; 80061; 82306; 84443

== ENCOUNTER → 2020-11-18 07:04 | Outpatient (CLI) | payer OTHER, SELFPAY ==
[2020-11-06 13:51] VITALS: BMI 36.5
--- NOTE | 2020-11-18 07:04 | BI_ITS ---
MAMMOGRAPHY - BILATERAL SCREENING REASON FOR EXAM: Female, 45 years old. Routine annual screening examination. PERTINENT HISTORY: Non-contributory. TECHNIQUE: Digital bilateral breast amita (3D mammographic acquisition) in the CC and MLO projections. 2-D mediolateral oblique (MLO) and craniocaudad (CC) views of both breasts were obtained. CAD: Full Field Digital Mammography with Computer Added Detection was performed. COMPARISON: Comparison is made with prior study dated 11/08/2019 and 09/13/2018. FINDINGS: Breast Composition: The breasts are heterogeneously dense, which may obscure small masses. There are no dominant masses or suspicious calcifications. No other significant abnormalities are identified. There has been no significant change since the prior study. BI/SCRN MAMM (CAD)W/AMITA BILAT IMPRESSION: Stable bilateral screening mammogram. Yearly follow-up mammogram recommended. (A) ASSESSMENT CATEGORY: BIRADS Category 1: Negative. A letter regarding these results will be sent to the patient by the facility within 30 days. Approximately 10% of breast cancers are not detected by mammography. A normal mammogram should not delay biopsy of a clinically suspicious abnormality. [id number] Electronically Signed: Bladimir Chan MD at 8:37 EDT , Service support ,
== END ==
PROVIDERS: PCP Family Medicine; Referring Provider Obstetrics & Gynecology; Visit Provider Obstetrics & Gynecology
DX: Z12.31 Encounter for screening mammogram for malignant neoplasm of breast (principal)
CPT/HCPCS: 77063; 77067

== ENCOUNTER 2021-08-19 07:03 | Outpatient (CLI) | payer OTHER, SELFPAY ==
[2021-08-19 10:48] LABS: Anion Gap 6 (5-15); BUN 11 mg/dL (7-18); BUN/Creat Ratio 12.1 RATIO (10-20); Calcium,Total 9.2 mg/dL (8.5-10.1); Chloride 105 mmol/L (98-107); Cholesterol 210 mg/dL (200); Creatinine, Serum 0.91 mg/dL (0.55-1.02); EST Glomerular Filtration Rate 70 mL/min (>60); Est Glom Filt Rate - Afr Amer 85 mL/min (>60); Glucose 119 mg/dL (74-106); High Density Lipoprotein 35 mg/dL; Potassium 3.6 mmol/L (3.5-5.1); Sodium Level 139 mmol/L (136-145); Triglycerides 200 mg/dL; Very Low Density Lipoprotein 40 mg/dL (5-40)
[2021-08-19 11:09] LABS: Vitamin D,25 Hydroxy 19.2 ng/mL
== END 2021-08-19 23:59 | disposition home or self-care (01) ==
PROVIDERS: PCP Family Medicine; Referring Provider Family Medicine; Visit Provider Family Medicine
DX: Z00.00 Encounter for general adult medical examination without abnormal findings (principal); R79.89 Other specified abnormal findings of blood chemistry; I10 Essential (primary) hypertension
CPT/HCPCS: 36415; 80048; 80061; 82306

== ENCOUNTER → 2021-11-20 | Outpatient (CLI) | payer OTHER, SELFPAY ==
--- NOTE | 2021-11-20 07:08 | BI_ITS ---
MAMMOGRAPHY - BILATERAL SCREENING REASON FOR EXAM: Female, 46 years old. Routine annual screening examination. PERTINENT HISTORY: Non-contributory. TECHNIQUE: Digital bilateral breast amita (3D mammographic acquisition) in the CC and MLO projections. 2-D mediolateral oblique (MLO) and craniocaudad (CC) views of both breasts were obtained. CAD: Full Field Digital Mammography with Computer Added Detection was performed. COMPARISON: Comparison is made with prior study dated 11/18/2020 and 11/08/2019. FINDINGS: Breast Composition: The breasts are heterogeneously dense, which may obscure small masses. There are no dominant masses or suspicious calcifications. No other significant abnormalities are identified. There has been no significant change since the prior study. BI/SCRN MAMM (CAD)W/AMITA BILAT IMPRESSION: Stable bilateral screening mammogram. Yearly follow-up mammogram recommended. (A) ASSESSMENT CATEGORY: BIRADS Category 1: Negative. A letter regarding these results will be sent to the patient by the facility within 30 days. Approximately 10% of breast cancers are not detected by mammography. A normal mammogram should not delay biopsy of a clinically suspicious abnormality. [id number] Electronically Signed: Bladimir Chan MD at 8:03 EDT ,
== END | disposition home or self-care (01) ==
LOC: OPBI 07:07
PROVIDERS: PCP Family Medicine; Referring Provider Obstetrics & Gynecology; Visit Provider Obstetrics & Gynecology
DX: Z12.31 Encounter for screening mammogram for malignant neoplasm of breast (principal)
CPT/HCPCS: 77063; 77067

== ENCOUNTER → 2021-12-02 | Outpatient (CLI) | payer OTHER, SELFPAY ==
[2021-12-02 12:55] LABS: Mucous, Urine 0 SEEN /hpf (<or=2+); Red Blood Cells-Urine 0 SEEN /hpf (0-5)
[2021-12-02 14:53] LABS: Color, Urine Yellow (Yellow); Glucose, Dipstick Normal (Normal); Ketone-Dipstick Negative (Negative); Leukocyte Esterase-Dipstick 100 /ul (Negative); Nitrite-Dipstick Negative (Negative); Occult Blood-Urine Negative /ul (Negative); Protein-Dipstick Negative (Negative); Specific Gravity, Urine 1.025 (1.002-1.030); Urine Bilirubin Dipstick Negative (Negative); Urine Clarity Sl. Cloudy (Clear); Urine Urobilinogen Normal (Normal)
[2021-12-02 14:54] LABS: Absolute Lymphocyte Count 2.98 X10^3/uL (0.83-4.51); Basophil# 0.03 X10^3/uL; Basophil% 0.4 % (0-1); Eosinophil# 0.18 X10^3/uL; Eosinophils% 2.7 % (0-5); Hematocrit 40.8 % (37-47); Hemoglobin 13.6 g/dL (12.0-15.0); Lymphocyte # 2.98 X10^3/ul (0.83-4.51); Lymphocyte % 44.2 % (19-41); Mean Corp Hgb Conc 33.3 g/dL (32-36); Mean Corpuscular Volume 89.9 fL (81-99); Mean Platelet Vol. 10.1 fl (6.2-12.0); Monocyte# 0.54 X10^3/uL; NRBC Flagged by Analyzer 0 % (0-5); Neutrophil # 2.99 X10^3/uL (2.7-7.7); Neutrophil % 44.4 % (47-70); Platelet Count 244 K/mm3 (150-450); RBC Distribution Width CV 13.2 % (11.6-14.6); RBC Distribution Width SD 43.1 fl (35.1-43.9); Red Blood Count 4.54 M/mm3 (4.2-5.4); White Blood Count 6.7 K/mm3 (4.4-11.0)
[2021-12-02 14:59] LABS: Bacteria 2+ /hpf (None Seen); Squamous Epithelial Cells - UA 5-10 SEEN /hpf (5-10); White Blood Cells 10-25 SEEN /hpf (0-5)
[2021-12-02 15:21] LABS: AST(SGOT) 33 U/L (15-37); Alanine Aminotransfer ALT/SGPT 52 U/L (13-56); Albumin, Serum 3.8 g/dL (3.2-5.0); Alkaline Phosphatase 86 U/L (45-117); Anion Gap 7 (5-15); BUN 15 mg/dL (7-18); BUN/Creat Ratio 16.6 RATIO (10-20); Calcium,Total 9.3 mg/dL (8.5-10.1); Chloride 103 mmol/L (98-107); EST Glomerular Filtration Rate 71 mL/min (>60); Est Glom Filt Rate - Afr Amer 86 mL/min (>60); Globulin 3.9 g/dL (2.2-4.2); Glucose 117 mg/dL (74-106); Potassium 3.3 mmol/L (3.5-5.1); Protein, Total 7.7 g/dL (6.4-8.2); Sodium Level 138 mmol/L (136-145)
== END | disposition home or self-care (01) ==
LOC: MTLAB 12:42
PROVIDERS: PCP Family Medicine; Referring Provider Dermatology; Visit Provider Dermatology
DX: L30.9 Dermatitis, unspecified (principal)
CPT/HCPCS: 36415; 80053; 81001; 85025; 86038; 86225

== ENCOUNTER 2022-05-20 05:21 | Day surgery (SDC) | payer OTHER, SELFPAY ==
[2022-05-20] MEDS: Lactated Ringers 1,000 ML 15 ML IV (05:35)
[2022-05-20 05:52] LABS: Internal QC Validated? YES +Cl - CLEAR BKGD; Pregnancy, Urine Negative Negative
[2022-05-20 06:06] VITALS: BP 146/100; PULSE 94; RESP 18; TEMP 36.6; O2SAT 97; BMI 41.3
--- NOTE | 2022-05-20 06:09 | SUR.PREOP ---
Pt is very anxious and tearful. Patient states her 1 year ago at this hospital and she has not been back since then. Patient states her blood pressure is well controlled at home, however she believes it is high today because of her passing. Patient denies any headaches or blurred vision. This RN spoke with ENDO charge nurse and discussed situation. ENDO charge nurse stated BP was okay and anesthesia will handle, should be able to proceed with procedure.
--- NOTE | 2022-05-20 06:35 | PCM.HP.STD ---
[facility] - General General Date of Admission: 05/20/22 Date of Service: 05/20/22 Chief Complaint: Screening colonoscopy HPI Narrative MACRINA SALDIVAR, is a 46 F who presents today for screening colonoscopy. She has not had a colonoscopy in the past. She does not have any abdominal pain. She not have any bleeding. Is not having any chest pain shortness of breath. Overall she is in very good health. [facility] Medical History Gastric reflux Hypertension Internal hemorrhoids Non-smoker PONV (postoperative nausea and vomiting) Shortness of breath on exertion Home Medications lisinopril 10 mg-hydrochlorothiazide 12.5 mg tablet 1 tab PO DAILY BP 08/19/18 [History Last Taken 08/18/18] venlafaxine 75 mg capsule,extended release 24 hr (Effexor XR) 75 mg PO DAILY depression 08/19/18 [History Last Taken 08/18/18] cholecalciferol (vitamin D3) 25 mcg (1,000 unit) capsule 25 mcg PO DAILY SUPPLEMENT 12/31/21 [History Last Taken Unknown] Allergy/AdvReac Type Severity Reaction Status Date / Time No Known Allergies Allergy Verified 05/17/22 12:27 Family History Mother Hypertension Aunt Cervical cancer Surgical History History of appendectomy History of colonoscopy S/P endometrial ablation Social History Smoking Status: Never smoker alcohol intake: never substance use type: does not use caffeine: Yes what type of physical activity do you participate in: additional details: crossfit frequency: 3-4 times per week seatbelt use: always do you feel safe at home: Yes additional social history: Barrett early 2021 at [facility] from [place] Patient works at [employer] [place] ROS Review of Systems ROS Unobtainable: other Constitutional Constitutional: Denies fatigue, fever(s), poor appetite, weight gain or weight loss ENT HEENT: Denies mouth lesions Cardiovascular Cardiovascular: Denies abdominal bloating, abdominal edema or abdominal pain Respiratory/Chest Respiratory/Chest: Denies change in mental status, change in phlegm color, chest congestion or chest tightness Gastrointestinal Gastrointestinal: Denies belching, bloating, change in bowel habits, change in stool character, chewing difficulty, coffee ground emesis, constipation, cramping, diarrhea, dyspepsia, dysphagia, early satiety, excessive flatus, fecal incontinence, heartburn, hematemesis, hematochezia, hemorrhoids, loose stools, melena, nausea, odynophagia, rectal bleeding, tenesmus, vomiting or weight changes Genitourinary Genitourinary: Denies abdominal discomfort, burning urination or itching Musculoskeletal Musculoskeletal: Reports as per HPI; Denies muscle weakness or myalgias Integumentary Integumentary: Denies jaundice Neurologic Neurologic: Denies lack of coordination or weakness Psychiatric Psychiatric: Denies confusion, depression, memory loss, mood swings, paranoia or suicidal ideation Endocrine Endocrinology: Denies systems reviewed and no addt'l complaints, except as documented Hematologic/Lymphatic Hematologic/Lymphatic: Denies anemia, easy bleeding, easy bruising or lymphadenopathy Allergic/Immunologic Allergic/Immunologic: Denies systems reviewed and no addt'l complaints, except as documented Vital Signs Vital Signs Vital Signs: 05/20/22 06:06 05/20/22 06:06 Temperature 97.8 F Temperature Source Temporal Pulse Rate 94 Respiratory Rate 18 Respiratory Pattern Normal Blood Pressure 146/100 H Blood Pressure Mean 115 Blood Pressure Source Monitor Blood Pressure Position Sitting Blood Pressure Location Right Arm Pulse Ox 97 Oxygen Delivery Method Room Air Weight Weight: 233 lb 0.458 oz Body Mass Index (BMI) 41.3 Physical Exam Const alert General Appearance: cooperative Orientation / Consciousness: oriented to person HEENT hearing grossly normal bilaterally Head and Scalp: normal to inspection Face and Sinus: face symmetric Nose: external nose normal Mouth: oral and palatal mucosa normal Eyes conjunctivae normal General Eye: normal appearance of both eyes Neck full ROM General: normal visual inspection Lymph Lymphatic: no lymphadenopathy noted Chest inspection of chest normal and palpation of chest normal Chest: symmetrical chest wall rise Resp normal respiratory effort Effort and Inspection: able to speak in complete sentences Cardio regular rate GI non-distended Percussion: normal to percussion Rectal Exam: deferred Neuro Speech: speech normal Gait (Neuro): normal gait Results Lab / Micro Data Labs: Laboratory Results - last 24 hr 05/20/22 05:42: Urine Test Negative Assessment & Plan Assessment/Plan (1) Encounter for screening for malignant neoplasm of colon: PLAN: She will undergo screening colonoscopy. She was explained alternatives, risk, benefits including not withstanding bleeding, infection, sepsis, perforation, need for emergent surgery . She have an ASA of 1.
[2022-05-20 07:00] VITALS: BP 125/90; BP 91/56; PULSE 97; RESP 16; TEMP 36.6; O2SAT 98
--- NOTE | 2022-05-20 07:02 | OP.CCLET_ITS ---
05/20/2022 Eron Martínez [address] [place] [address] Re : Colonoscopy procedure for Janet Almonte Dear Dr. Martínez This procedure was performed on May. My impressions and recommendations are as follows: Impressions : - Stool in the recto-sigmoid colon and in the sigmoid colon. - The examination was otherwise normal on direct and retroflexion views. - No specimens collected. Recommendations : - Discharge patient to home. - Resume previous diet. - Continue present medications. - Repeat colonoscopy in 10 years for screening purposes. My findings are described in the full procedure note, which is enclosed. If I can be of further assistance, please feel free to contact me at . Sincerely, Julio Luke, 05/20/2022 7:01:35 AM This report has been signed electronically.
--- NOTE | 2022-05-20 07:02 | OP.COLON_ITS ---
Patient Name: Janet Almonte Procedure Date: 05/20/2022 6:15 AM Date of : 1975 Age: 46 Procedure: Colonoscopy Indications: Screening for colorectal malignant neoplasm Providers: DO Victoria Leung MD: Eron Mratínez Medicines: Monitored Anesthesia Care Patient Profile: This is a 46 year old female. Refer to note in patient chart for documentation of history and physical. Last Colonoscopy: more than 10 years ago. Complications: No immediate complications. Procedure: Pre-Anesthesia Assessment: - Prior to the procedure, a History and Physical was performed, and patient medications and allergies were reviewed. The risks and benefits of the procedure and the sedation options and risks were discussed with the patient. All questions were answered and informed consent was obtained. Patient identification and proposed procedure were verified by the physician. Mental Status Examination: normal. Prophylactic Antibiotics: The patient does not require prophylactic antibiotics. Prior Anticoagulants: The patient has taken no previous anticoagulant or antiplatelet agents. After reviewing the risks and benefits, the patient was deemed in satisfactory condition to undergo the procedure. The anesthesia plan was to use monitored anesthesia care (MAC). Immediately prior to administration of medications, the patient was re-assessed for adequacy to receive sedatives. The heart rate, respiratory rate, oxygen saturations, blood pressure, adequacy of pulmonary ventilation, and response to care were monitored throughout the procedure. The physical status of the patient was re-assessed after the procedure. After I obtained informed consent, the scope was passed under direct vision. Throughout the procedure, the patient's blood pressure, pulse, and oxygen saturations were monitored continuously. The colonoscope was introduced through the anus and advanced to the cecum, identified by appendiceal orifice and ileocecal valve. The colonoscopy was performed without difficulty. The patient tolerated the procedure well. The quality of the bowel preparation was adequate. Scope In: 6:41:33 AM Scope Withdrawal Time 0 hours 9 minutes 43 seconds Scope Out: 6:55:12 AM Total Procedure Duration Time 0 hours 13 minutes 39 seconds Findings: The perianal and digital rectal examinations were normal. Stool was found in the recto-sigmoid colon and in the sigmoid colon. Lavage of the area was performed using 50 - 200 mL, resulting in clearance with fair visualization. The exam was otherwise without abnormality on direct and retroflexion views. Non-bleeding internal hemorrhoids were found during retroflexion. The hemorrhoids were Grade I (internal hemorrhoids that do not prolapse). Impression: - Stool in the recto-sigmoid colon and in the sigmoid colon. - The examination was otherwise normal on direct and retroflexion views. - No specimens collected. Recommendation: - Discharge patient to home. - Resume previous diet. - Continue present medications. - Repeat colonoscopy in 10 years for screening purposes. Procedure Code(s): --- Professional --- G0121, Colorectal cancer screening; colonoscopy on individual not meeting criteria for high risk CPT copyright 2017 [employer]. All rights reserved. The codes documented in this report are preliminary and upon insurance plan specialist review may be revised to meet current compliance requirements. Julio Luke DO 05/20/2022 7:01:35 AM This report has been signed electronically. Number of Addenda: 0 Note Initiated On: 05/20/2022 6:15 AM
[2022-05-20 07:05] VITALS: BP 125/90; BP 95/66; PULSE 98; RESP 18; O2SAT 96
[2022-05-20 07:10] VITALS: BP 109/75; BP 125/90; PULSE 86; RESP 16; O2SAT 96
[2022-05-20 07:14] VITALS: BP 124/96; BP 125/90; PULSE 95; RESP 18; TEMP 36.9; O2SAT 96
[2022-05-20 07:22] VITALS: BP 125/90
== END 2022-05-20 07:43 | disposition home or self-care (01) ==
LOC: EN 05:26 → AC 05:27
PROVIDERS: Anesthesiology; PCP Family Medicine; Referring Provider Family Medicine; Visit Provider Internal Medicine Gastroenterology
PROC: 0DJD8ZZ Inspection of Lower Intestinal Tract, Via Natural or Artificial Opening Endoscopic (ICD-10-PCS; CPT 45378; principal; 2022-05-20 06:25)
DX: Z12.11 Encounter for screening for malignant neoplasm of colon (principal); K64.0 First degree hemorrhoids; I10 Essential (primary) hypertension; K21.9 Gastro-esophageal reflux disease without esophagitis
CPT/HCPCS: G0121; 81025; J7120; J2405

== ENCOUNTER 2022-05-28 23:23 | Emergency (ER) | payer OTHER, SELFPAY ==
[2022-05-28 23:24] VITALS: BP 187/115; PULSE 116; RESP 20; TEMP 36.4; O2SAT 97; BMI 42.0
--- NOTE | 2022-05-28 23:39 | RAD_ITS ---
INDICATION: Cough EXAMINATION/TECHNIQUE: X-RAY - XR Chest 2 Views COMPARISON: None. FINDINGS: LINES/DEVICES: None. LUNGS: No pulmonary edema or focal airspace consolidation. No sizable pleural effusion. No pneumothorax detected. MEDIASTINUM AND CARDIOVASCULAR STRUCTURES: Heart size within normal limits. Mediastinal contours unremarkable. BONES AND SOFT TISSUES: No acute findings. RAD/Chest PA and Lateral IMPRESSION: No radiographic evidence of acute cardiopulmonary disease. Electronically Signed: Robson Lawrence MD at 0:09 EST ,
--- NOTE | 2022-05-28 23:39 | EX.ED.VIS.UR ---
HPI HPI - URI History of Present Illness Chief Complaint: Cough Narrative Narrative: 46-year-old female, past medical history of hypertension, states that on April 03, almost 2 months ago, But has had persistent cough. noticed with influenza A. She thought she got better, But has had persistent cough. She went to see her primary care physician on Tuesday, [facility] Medical History Gastric reflux Hypertension Internal hemorrhoids Non-smoker PONV (postoperative nausea and vomiting) Shortness of breath on exertion Home Medications lisinopril 10 mg-hydrochlorothiazide 12.5 mg tablet 1 tab PO DAILY BP 08/19/18 [History Last Taken 08/18/18] venlafaxine 75 mg capsule,extended release 24 hr (Effexor XR) 75 mg PO DAILY depression 08/19/18 [History Last Taken 08/18/18] cholecalciferol (vitamin D3) 25 mcg (1,000 unit) capsule 25 mcg PO DAILY SUPPLEMENT 12/31/21 [History Last Taken Unknown] Allergy/AdvReac Type Severity Reaction Status Date / Time No Known Allergies Allergy Verified 05/28/22 23:26 Family History Mother Hypertension Aunt Cervical cancer Surgical History History of appendectomy History of colonoscopy S/P endometrial ablation Social History Smoking Status: Never smoker alcohol intake: never substance use type: does not use caffeine: Yes what type of physical activity do you participate in: additional details: crossfit frequency: 3-4 times per week seatbelt use: always do you feel safe at home: Yes additional social history: [place] early 2021 at [facility] from [place] Patient works at [employer] [place] EXAM Physical Exam Const Vital Signs: 05/28/22 23:24 05/29/22 00:39 Temperature 97.5 F L Temperature Source Temporal Pulse Rate 116 H Respiratory Rate 20 H Respiratory Effort Normal Non-Labored Respiratory Depth Normal Respiratory Pattern Normal Blood Pressure 187/115 H Blood Pressure Mean 139 Pulse Ox 97 Oxygen Delivery Method Room Air MDM MDM MDM Narrative Medical decision making narrative: Pulse ox is 97% on room air without evidence of hypoxia. I reviewed her respiratory swabs and she is negative for COVID and influenza. I reviewed her chest x-ray and interpreted it in 2 views and see no evidence of consolidation or pneumothorax. I reviewed the radiology report and they confirm that there is no acute cardiopulmonary disease. She will continue her antibiotics and finish the course of therapy. At this point in time, I feel she can be discharged safely home with follow-up to her primary care provider. She is already on multiple medications for her bronchitis. Return instructions to the emergency department were reviewed. Disposition is discharged home in stable condition. Lab Data Attestation: I reviewed the patient's lab results. Radiography Diagnostic Testing: Clinical Impression(s) from Imaging Studies Chest X-Ray 05/28/22 23:39 IMPRESSION: No radiographic evidence of acute cardiopulmonary disease. Electronically Signed: Robson Lawrence MD at 0:09 EST , Discharge Plan Triage Chief Complaint: Cough ED Provider: Oscar Pryor Dx/Rx/DC Orders Clinical Impression: URI (upper respiratory infection), Bronchitis Instructions: ED Upper Resp Infec Abx Tx Prescriptions: No Action cholecalciferol (vitamin D3) 25 mcg (1,000 unit) capsule 25 mcg PO DAILY lisinopril-hydrochlorothiazide 1 EACH tablet 1 tab PO DAILY venlafaxine [Effexor XR] 75 MG capsule,extended release 24hr 75 mg PO DAILY Stand Alone Forms: ED Work / School Excuse Primary Care Provider: Eron Martínez Referrals: Eron Martínez MD [Primary Care Provider] - 3-5 Days if not improving Disposition Disposition: Home, Self Care Discharge Date/Time: 05/29/22 00:46
== END 2022-05-29 00:46 | disposition home or self-care (01) ==
PROVIDERS: Emergency Provider Emergency Medicine; PCP Family Medicine; Visit Provider Emergency Medicine
DX: J06.9 Acute upper respiratory infection, unspecified (principal); J40 Bronchitis, not specified as acute or chronic; I10 Essential (primary) hypertension; R05.9 Cough, unspecified
CPT/HCPCS: 71046; 87428; 99282

== ENCOUNTER → 2022-10-26 | Outpatient (CLI) | payer OTHER, SELFPAY ==
[2022-10-26 07:47] LABS: Erythrocyte Sedimentation Rate 4 mm/hr (0-30)
[2022-10-26 08:11] LABS: AST(SGOT) 32 U/L (15-37); Alanine Aminotransfer ALT/SGPT 39 U/L (13-56); Albumin, Serum 3.7 g/dL (3.2-5.0); Alkaline Phosphatase 74 U/L (45-117); Anion Gap 3 (5-15); BUN 16 mg/dL (7-18); BUN/Creat Ratio 16.1 RATIO (10-20); CRP < 2.90 mg/L (0.0-3.0); Calcium,Total 9.4 mg/dL (8.5-10.1); Chloride 107 mmol/L (98-107); Cholesterol 188 mg/dL (200); EST Glomerular Filtration Rate 63 mL/min (>60); Est Glom Filt Rate - Afr Amer 76 mL/min (>60); Globulin 3.8 g/dL (2.2-4.2); Glucose 101 mg/dL (74-106); High Density Lipoprotein 39 mg/dL; Potassium 3.7 mmol/L (3.5-5.1); Protein, Total 7.5 g/dL (6.4-8.2); Sodium Level 138 mmol/L (136-145); Thyroid Stim Hormone (TSH) 3.57 uIU/mL (0.358-3.74); Triglycerides 84 mg/dL; Very Low Density Lipoprotein 17 mg/dL (5-40)
[2022-10-26 08:21] LABS: Vitamin D,25 Hydroxy 29.9 ng/mL
[2022-10-27 13:08] LABS: ANTINUCLEAR ANTIBODIES DIRECT Negative (Negative)
== END | disposition home or self-care (01) ==
PROVIDERS: PCP Family Medicine; Referring Provider Family Medicine; Visit Provider Family Medicine
DX: Z01.818 Encounter for other preprocedural examination (principal); F41.1 Generalized anxiety disorder; R21 Rash and other nonspecific skin eruption; I10 Essential (primary) hypertension; R79.89 Other specified abnormal findings of blood chemistry
CPT/HCPCS: 36415; 80053; 80061; 82306; 84443; 85652; 86038; 86140

== ENCOUNTER → 2022-12-03 | Outpatient (CLI) | payer OTHER, SELFPAY ==
--- NOTE | 2022-12-03 14:46 | BI_ITS ---
MAMMOGRAPHY - BILATERAL SCREENING REASON FOR EXAM: Female, 47 years old. Routine annual screening examination. PERTINENT HISTORY: Non-contributory. TECHNIQUE: Digital bilateral breast amita (3D mammographic acquisition) in the CC and MLO projections. 2-D mediolateral oblique (MLO) and craniocaudad (CC) views of both breasts were obtained. CAD: Full Field Digital Mammography with Computer Added Detection was performed. COMPARISON: Comparison is made with prior study dated November 20, 2021 and November 18, 2020. FINDINGS: Breast Composition: There are scattered areas of fibroglandular density. There are no dominant masses or suspicious calcifications. No other significant abnormalities are identified. There has been no significant change since the prior study. BI/SCRN MAMM (CAD)W/AMITA BILAT IMPRESSION: Stable bilateral screening mammogram. Yearly follow-up mammogram recommended. (A) ASSESSMENT CATEGORY: BIRADS Category 1: Negative. A letter regarding these results will be sent to the patient by the facility within 30 days. Approximately 10% of breast cancers are not detected by mammography. A normal mammogram should not delay biopsy of a clinically suspicious abnormality. [id number] Electronically Signed: Bladimir Chan MD at 15:33 EDT ,
== END | disposition home or self-care (01) ==
LOC: OPBI 14:45
PROVIDERS: PCP Family Medicine; Referring Provider Obstetrics & Gynecology; Visit Provider Obstetrics & Gynecology
DX: Z12.31 Encounter for screening mammogram for malignant neoplasm of breast (principal)
CPT/HCPCS: 77063; 77067

== ENCOUNTER → 2023-08-29 | Outpatient (CLI) | payer OTHER, SELFPAY ==
[2023-08-29 08:14] LABS: Anion Gap 5 (5-15); BUN 15 mg/dL (7-18); BUN/Creat Ratio 16.3 RATIO (10-20); Calcium,Total 9.1 mg/dL (8.5-10.1); Chloride 107 mmol/L (98-107); Cholesterol 202 mg/dL (200); Creatinine, Serum 0.92 mg/dL (0.55-1.02); EST Glomerular Filtration Rate 69 mL/min (>60); Est Glom Filt Rate - Afr Amer 83 mL/min (>60); Glucose 115 mg/dL (74-106); High Density Lipoprotein 38 mg/dL; Potassium 3.8 mmol/L (3.5-5.1); Sodium Level 141 mmol/L (136-145); Triglycerides 94 mg/dL; Very Low Density Lipoprotein 19 mg/dL (5-40)
[2023-08-29 10:14] LABS: Microalbumin,Random Urine 24.5 mg/L (NO RANGE EST.); Microalbumin:Creatinine Ratio 7.1 mg/g CRE (<30 mg/g CRE)
== END | disposition home or self-care (01) ==
PROVIDERS: PCP Family Medicine; Referring Provider Family Medicine; Visit Provider Family Medicine
DX: I10 Essential (primary) hypertension (principal)
CPT/HCPCS: 36415; 80048; 80061; 82043; 82570

== ENCOUNTER → 2023-12-05 | Outpatient (CLI) | payer OTHER, SELFPAY ==
[2023-12-10 10:42] LABS: HPV APTIMA, High Risk Negative (Negative)
== END | disposition home or self-care (01) ==
PROVIDERS: PCP Family Medicine; Referring Provider Obstetrics & Gynecology; Visit Provider Obstetrics & Gynecology
DX: Z12.4 Encounter for screening for malignant neoplasm of cervix (principal)
CPT/HCPCS: 87624; 88175; G0145

== ENCOUNTER → 2023-12-09 | Outpatient (CLI) | payer OTHER, SELFPAY ==
--- NOTE | 2023-12-09 12:23 | BI_ITS ---
MAMMOGRAPHY - BILATERAL SCREENING 3-D TOMOSYNTHESIS REASON FOR EXAM: Female, 48 years old. screening mammogram PERTINENT HISTORY: No significant family history. TECHNIQUE: 2-D mammograms and 3-D Tomosynthesis of the breast (s) were performed. CAD was performed. COMPARISON: 12/03/2022 FINDINGS: The breast composition is composed of scattered fibroglandular density. Scattered benign calcifications are seen. No dense spiculated masses or suspicious microcalcifications are identified. No architectural distortion is identified. There is no skin thickening or retraction. There has been no significant change since the prior study. BI/SCRN MAMM (CAD)W/AMITA BILAT IMPRESSION: No mammographic signs of malignancy. Routine yearly mammograms recommended. ASSESSMENT CATEGORY: BIRADS Category 1: Negative. A letter regarding these results will be sent to the patient by the facility within 30 days. FOLLOW UP RECOMMENDATION: Yearly follow up mammogram recommended. (A) Approximately 10% of breast cancers are not detected by mammography. A normal mammogram should not delay biopsy of a clinically suspicious abnormality. Electronically Signed: Zeeshan Cameron MD at 13:15 EDT ,
== END | disposition home or self-care (01) ==
PROVIDERS: PCP Family Medicine; Referring Provider Obstetrics & Gynecology; Visit Provider Obstetrics & Gynecology
DX: Z12.31 Encounter for screening mammogram for malignant neoplasm of breast (principal)
CPT/HCPCS: 77063; 77067

== ENCOUNTER → 2024-12-14 | Outpatient (CLI) | payer OTHER, SELFPAY ==
--- NOTE | 2024-12-14 08:30 | BI_ITS ---
EXAM: SCRN MAMM (CAD)W/AMITA BILAT DATE: 12/14/2024 CLINICAL HISTORY: F, Age 49 y/o , SCREEN FOR BREAST CANCER TECHNIQUE: SCRN MAMM (CAD)W/AMITA BILAT COMPARISON: Prior exam(s) dated 12/09/2023, 12/03/2022, 11/20/2021. FINDINGS: TISSUE DENSITY: There are scattered areas of fibroglandular density. Bilateral Breast Mammographic Findings: No significant masses, calcifications or other abnormalities are identified. BI/SCRN MAMM (CAD)W/AMITA BILAT IMPRESSION: There is no mammographic evidence of malignancy. OVERALL FINAL ASSESSMENT BI-RADS 1: NEGATIVE. RECOMMENDATION: Routine annual follow-up in 1 Year A letter with findings and recommendations will be mailed to the patient. Reading Location: [id number]
--- OUTSIDE RECORDS SUMMARY | 2024-12-14 08:49 | XMS RPT_ITS | CCD ---
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 Method room air Intake Visit Reasons: HEAD CONGESTION, CAN'T BREATH THROUGH NOSE Chief Complaint: est annual Allergies No Known Allergies Allergy (Verified 04/28/23 06:59) PFSH Medical History Gastric reflux Hypertension Internal hemorrhoids Non-smoker PONV (postoperative nausea and vomiting) Shortness of breath on exertion Surgical History History of appendectomy History of colonoscopy S/P endometrial ablation Family History Mother Hypertension Aunt Cervical cancer Social History (Updated 12/01/22 @ 15:31 by Mayra Dong) Smoking Status: Never smoker alcohol intake: never substance use type: does not use caffeine: Yes what type of physical activity do you participate in: weight training frequency: 3-4 times per week seatbelt use: always do you feel safe at home: Yes additional social history: Patient works at [employer] via [place] HPI HPI Chief Complaint: est annual Details: MACRINA ALMONTE, is a 47 F who presents to the office today for complaint of sinus congestion/pressure and pain. Patient states this started 4 to 5 days ago. She does state this is worsening over the past several days. She states not being able to breathe through her nose. No fever, chills, sweats. No nausea, vomiting, diarrhea. No cough, shortness of breath or difficulty breathing. No other associated symptoms or alleviating/aggravating factors. ROS Const Constitutional: No other (6 system ROS completed with pertinent findings in the HPI otherwise normal.) Exam Const General: cooperative and healthy appearing [facility] Head: normal to inspection Ears: hearing grossly normal bilaterally, TM's normal bilaterally and EAC's normal Nose: nasal discharge purulent Face and sinus: sinus tenderness frontal and maxillary Mouth: oral mucosae normal Throat: abnormal tonsil bilaterally erythema and hypertrophy 1+ and postnasal drainage Resp Effort Inspection: normal respiratory effort Auscultation: Bilateral: Clear to Auscultation Cardio Palpation: normal PMI Rate: regular rate Rhythm: regular rhythm Neuro General: patient alert and CN's II-XI intact bilaterally Psych Appearance: grossly normal Mental Status: mental status grossly normal Coding Level of Care Code Off vis,new,level 3 Diagnoses Acute sinusitis J01.90 Assessment and Plan Assessment and Plan (1) Acute sinusitis: Status: Acute Medications: New amoxicillin-pot clavulanate 875-125 mg 1 TAB PO Q12H 10 days 20 tabs 0RF J01.90 - Acute sinusitis, unspecified Plan Augmentin as prescribed today. Encouraged to get plenty of rest, drink lots of clear liquids, and use Tylenol or Ibuprofen (unless contraindicated) for fever and comfort. Patient also educated on other symptomatic management techniques. To be seen in 7-10 days if no improvement; sooner if worsening of symptoms. Patient advised of potential red flags and when appropriate to report to the ED. Patient verbalized understanding and agreement with all the above. 04/28/23 0715 Date Sahil Fernando Signature: Date (if applicable) CC: Normal [facility] Basophil percentageOrdered B y: Eron Martínez on 10-26-2022 Bilirubin [Mass/Vol] 0.40 mg/dL 0.20-1.00 [facility] Comment on above: For patients on eltr ombopag therapy, use of Dimension Printer TBIL is not recommended. Chloride [Moles/Vol] 107 mmol/L 98-107 [facility] Cholesterol [Mass/Vol] 188 mg/dL <200 [facility] Comment on above: <200 mg/dL Desirable 200-240 mg/dL Borderline >240 mg/dL High Risk Glucose [Mass/Vol] 101 mg/dL 74-106 [facility] Comment on above: Fasting Glucose resu lt from 100 to 125 mg/dL suggests IMPAIRED HOMEOSTASIS per A.D.A. criteria. Potassium [Moles/Vol] 3.7 mmol/L 3.5-5.1 [facility] Protein [Mass/Vol] 7.5 g/dL 6.4-8.2 [facility] Sodium [Moles/Vol] 138 mmol/L 136-145 [facility] Triglyceride [Mass/Vol] 84 mg/dL <199 [facility] Comment on above: The drugs N-Acetylcy steine and Metamizole may falsely depress this assay.Serum Triglycerides Reference Interval Normal <150 mg/dL Borderline high 150 - 199 mg/dL High 200 - 499 mg/dL Very High > or = 500 mg/dL Erythrocyte sedimentation ra teOrdered By: Eron Martínez on 10-26-2022 ESR (Bld) [Velocity] 4 mm/h 0-30 [facility] Laboratory - Chemistry and C hemistry - challengeOrdered By: Eron Martínez on 10-26-2022 ALP [Catalytic activity/Vol] 74 U/L 45-117 [facility] ALT [Catalytic activity/Vol] 39 U/L 13-56 [facility] CO2 [Moles/Vol] 28.0 mmol/L 21.0-32.0 [facility] Globulin (S) [Mass/Vol] 3.8 g/dL 2.2-4.2 [facility] Urea nitrogen/Creatinine [Mass ratio] 16.1 mg/mg 10-20 [facility] No Panel InformationOrdered By: Eron Martínez on 10-26-2022 Anti-Nuclear Antibody Screen Negative Negative [facility] Comment on above: Performed at: [employer] [facility] [place] [id number] Director: Lm Barrera PhD, Phone: [phone] Estimated GFR (MDRD) Amer 76 mL/min >60 [facility] Comment on above: GFR Calc Estimated GFR (MDRD) Non-Af Amer 63 mL/min >60 [facility] Comment on above: Non- GFR Calc Thyroid Stimulating Hormone (TSH) 3.57 uIU/mL 0.358-3.74 [facility] Vitamin D 25-Hydroxy 29.9 ng/mL [facility] Comment on above: Vitamin D 25(OH) Sta tus Range Deficiency <20 ng/mL (50nmol/L) Insufficiency 20 - 30 ng/mL (50 - 75 nmol/L) Sufficiency 30 - 100 ng/mL (75 - 250 nmol/L) Toxicity >100 ng/mL (>250 nmol/L) Serum or plasma C reactive p rotein measurement (mass/volume)Ordered By: Eron Martínez on 10-26-2022 CRP [Mass/Vol] mg/L 0.0-3.0 [facility] Comment on above: C-Reactive Protein ( CRP) provides useful information for thediagnosis, therapy and monitoring of inflammatory processesand associated diseases. For the evaluation of Relative Riskfor Cardiovascular Disease, a High Sensitivity CRP (HSCRP)should be ordered. Serum or plasma albumin olesya urement (mass/volume)Ordered By: Eron Martínez on 10-26-2022 Albumin [Mass/Vol] 3.7 g/dL 3.2-5.0 [facility] Serum or plasma albumin/glob ulin mass ratioOrdered By: Eron Martínez on 10-26-2022 Albumin/Globulin [Mass ratio] 1.0 {ratio} 0.9-2.4 [facility] Serum or plasma calcium olesya urement (mass/volume)Ordered By: Eron Martínez on 10-26-2022 Calcium [Mass/Vol] 9.4 mg/dL 8.5-10.1 [facility] Serum or plasma cholesterol in HDL measurement (mass/volume)Ordered By: Eron Martínez on 10-26-2022 Cholesterol in HDL [Mass/Vol] 39 mg/dL >40 [facility] Comment on above: The drugs N-Acetylcy steine and Metamizole may falsely depress this assay. Reference Range HDL <40 mg/dL Low HDL Cholesterol HDL >or= 60 mg/dL High HDL Cholesterol Serum or plasma cholesterol in VLDL measurement (mass/volume)Ordered By: Eron Martínez on 10-26-2022 Cholesterol in VLDL [Mass/Vol] 17 mg/dL 5-40 [facility] Serum or plasma creatinine m easurement (mass/volume)Ordered By: Eron Martínez on 10-26-2022 Creatinine [Mass/Vol] 1.00 mg/dL 0.55-1.02 [facility] Comment on above: The validity of the calculated GFR & GFRAA in patients over 70 years has not been determined. Clinical correlation is essential. Serum or plasma low density lipoprotein (LDL) cholesterol measurement (mass/volume)Ordered By: Eron Martínez on 10-26-2022 Cholesterol in LDL [Mass/Vol] 132 mg/dL 0-130 [facility] Serum or plasma urea nitroge n measurement (mass/volume)Ordered By: Eron Martínez on 10-26-2022 Urea nitrogen [Mass/Vol] 16 mg/dL 7-18 [facility] Thin prep Papanicolaou smear with manual screeningOrdered By: Eron Martínez on 10-26-2022 Thin prep Papanicolaou smear with manual screening 32 U/L 15-37 [facility] Thin prep Papanicolaou smear with manual screening 3 5-15 [facility] Influenza virus A and B and SARS-CoV-2 (COVID-19) Ag panel - Upper respiratory specimOrdered By: Dr. Pryor on 05-29-2022 SARS-CoV-2 (COVID-19) RNA OSWALDO+probe Ql (Resp) [facility] Laboratory - Chemistry and C hemistry - challengeOrdered By: Dr. Narayanan on 05-20-2022 HCG ( test) Ql (U) Negative [facility] Comment on above: Very dilute urine sp ecimens, as indicated by a low specificgravity, may not contain apprenticeship training representative levels of hCG. If is still suspected, a first morning urinespecimen should be collected 48 hours later and tested. Absolute lymphocyte counton 12-02-2021 Lymphocytes Auto (Unsp spec) [#/Vol] 2.98 10*3/uL 0.83-4.51 [facility] Work Phone: Basophil percentageon 2021 Basophil percentage 10-25 SEEN /hpf 0-5 [facility] Work Phone: Basophils/100 WBC (Bld) 0.4 % 0-1 [facility] Work Phone: Bilirubin [Mass/Vol] 0.40 mg/dL 0.20-1.00 [facility] Work Phone: Comment on above: For patients on eltr ombopag therapy, use of Dimension Printer TBIL is not recommended. Chloride [Moles/Vol] 103 mmol/L 98-107 [facility] Work Phone: Eosinophils/100 WBC (Bld) 2.7 % 0-5 [facility] Work Phone: Glucose [Mass/Vol] 117 mg/dL 74-106 [facility] Work Phone: Comment on above: Fasting Glucose resu lt from 100 to 125 mg/dL suggests IMPAIRED HOMEOSTASIS per A.D.A. criteria. Neutrophils (Bld) [#/Vol] 3.0 10*3/uL 2.0-7.7 [facility] Work Phone: Neutrophils/100 WBC (Bld) 44.4 % 47-70 [facility] Work Phone: Potassium [Moles/Vol] 3.3 mmol/L 3.5-5.[address] [facility] Work Phone: Protein [Mass/Vol] 7.7 g/dL 6.4-8.2 [facility] Work Phone: Sodium [Moles/Vol] 138 mmol/L 136-145 [facility] Work Phone: WBC (Bld) [#/Vol] 6.7 10*3/uL 4.4-11.0 [facility] Work Phone: Bilirubin Test strip Ql (U)o n 12-02-2021 Bilirubin Ql (U) Negative Negative [facility] Work Phone: Blood erythrocytes count (nu mber/volume)on 12-02-2021 RBC (Bld) [#/Vol] 4.54 10*6/uL 4.2-5.4 [facility] Work Phone: Blood hemoglobin measurement (mass/volume)on 12-02-2021 Hemoglobin (Bld) [Mass/Vol] 13.6 g/dL 12.0-15.0 [facility] Work Phone: Blood lymphocytes/100 leukoc yteson 12-02-2021 Lymphocytes/100 WBC (Bld) 44.2 % 19-41 [facility] Work Phone: Blood monocytes/100 leukocyt eson 12-02-2021 Monocytes/100 WBC (Bld) 8.0 % 0-10 [facility] Work Phone: Blood platelet mean volumeon 12-02-2021 Platelet mean volume (Bld) [Entitic vol] 10.1 fL 6.2-12.0 [facility] Work Phone: Determination of erythrocyte mean corpuscular volume (MCV)on 12-02-2021 MCV (RBC) [Entitic vol] 89.9 fL 81-99 [facility] Work Phone: Hematocrit Auto (Bld) [Volum e fraction]on 12-02-2021 Hematocrit (Bld) [Volume fraction] 40.8 % 37-47 [facility] Work Phone: Ketones Test strip Ql (U)on 12-02-2021 Ketones Ql (U) Negative Negative [facility] Work Phone: Laboratory - Chemistry and C hemistry - challengeon 12-02-2021 ALP [Catalytic activity/Vol] 86 U/L 45-117 [facility] Work Phone: ALT [Catalytic activity/Vol] 52 U/L 13-56 [facility] Work Phone: CO2 [Moles/Vol] 28.0 mmol/L 21.0-32.0 [facility] Work Phone: Globulin (S) [Mass/Vol] 3.9 g/dL 2.2-4.2 [facility] Work Phone: Urea nitrogen/Creatinine [Mass ratio] 16.6 mg/mg 10-20 [facility] Work Phone: Laboratory - Hematology and Cell countson 12-02-2021 Erythrocyte distribution width (RBC) [Entitic vol] 43.1 fL 35.1-43.9 [facility] Work Phone: Erythrocyte distribution width (RBC) [Ratio] 13.2 % 11.6-14.6 [facility] Work Phone: Immature granulocytes/100 WBC (Bld) 0.300 % 0.0-0.9 [facility] Work Phone: Comment on above: IG% - Immature Granu locytes (promyelocytes, myelocytes and metamyelocytes) > 1% indicates that a LEFT SHIFT is Present. MCH (RBC) [Entitic mass] 30.0 pg 27.0-32.0 [facility] Work Phone: Nucleated RBC/100 WBC (Bld) [Ratio] 0 % 0-5 [facility] Work Phone: MCHC Auto (RBC) [Mass/Vol]on 12-02-2021 MCHC (RBC) [Mass/Vol] 33.3 g/dL 32-36 [facility] Work Phone: Mucus LM Ql (Urine sed)on Mucus Ql (Urine sed) 0 SEEN /hpf [facility] Work Phone: Nitrite Test strip Ql (U)on 12-02-2021 Nitrite Ql (U) Negative Negative [facility] Work Phone: No Panel Informationon 12-02 Estimated GFR (MDRD) Amer 86 mL/min >60 [facility] Work Phone: Comment on above: GFR Calc Estimated GFR (MDRD) Non-Af Amer 71 mL/min >60 [facility] Work Phone: Comment on above: Non- GFR Calc Platelets bldon 12-02-2021 Platelets (Bld) [#/Vol] 244 10*3/uL 150-450 [facility] Work Phone: Protein Test strip Ql (U)on 12-02-2021 Protein Ql (U) Negative Negative [facility] Work Phone: Serum or plasma albumin olesya urement (mass/volume)on 12-02-2021 Albumin [Mass/Vol] 3.8 g/dL 3.2-5.0 [facility] Work Phone: Serum or plasma albumin/glob ulin mass ratioon 12-02-2021 Albumin/Globulin [Mass ratio] 1.0 {ratio} 0.9-2.4 [facility] Work Phone: Serum or plasma calcium olesya urement (mass/volume)on 12-02-2021 Calcium [Mass/Vol] 9.3 mg/dL 8.5-10.1 [facility] Work Phone: Serum or plasma creatinine m easurement (mass/volume)on 12-02-2021 Creatinine [Mass/Vol] 0.90 mg/dL 0.55-1.02 [facility] Work Phone: Comment on above: The validity of the calculated GFR & GFRAA in patients over 70 years has not been determined. Clinical correlation is essential. Serum or plasma urea nitroge n measurement (mass/volume)on 12-02-2021 Urea nitrogen [Mass/Vol] 15 mg/dL 7-18 [facility] Work Phone: Squamous epithelial cells de tection in urine sediment by light microscopyon 12-02-2021 Epithelial cells.squamous LM Ql (Urine sed) 5-10 SEEN /hpf 5-10 [facility] Work Phone: Thin prep Papanicolaou smear with manual screeningon 12-02-2021 Thin prep Papanicolaou smear with manual screening 33 U/L 15-37 [facility] Work Phone: Thin prep Papanicolaou smear with manual screening 7 5-15 [facility] Work Phone: Urine blood detectionon 08- RBC Ql (U) Negative Negative [facility] Work Phone: RBC Ql (U) 0 SEEN /hpf 0-5 [facility] Work Phone: Urine clarityon 12-02-2021 Clarity (U) Sl. Cloudy Clear [facility] Work Phone: Urine color determinationon 12-02-2021 Color (U) Yellow Yellow [facility] Work Phone: Urine glucose detectionon Glucose Ql (U) Normal mg/dl Normal [facility] Work Phone: Urine leukocyte esterase det ection by dipstickon 12-02-2021 Leukocyte esterase Test strip Ql (U) 100 /ul Negative [facility] Work Phone: Urine pHon 12-02-2021 pH (U) 5.0 [pH] 5.0 - 8.0 [facility] Work Phone: Urine sediment bacteria coun t by microscopy (number/high power field)on 12-02-2021 Bacteria LM.HPF (Urine sed) [#/Area] 2 /[HPF] None Seen [facility] Work Phone: Urine specific gravity measu rementon 12-02-2021 Specific gravity (U) [Rel density] 1.025 1.002-1.030 [facility] Work Phone: Urobilinogen Auto test strip Ql (U)on 12-02-2021 Urobilinogen Ql (U) Normal mg/dl Normal [facility] Work Phone: Basophil percentageon 2021 Chloride [Moles/Vol] 105 mmol/L 98-107 [facility] Work Phone: Cholesterol [Mass/Vol] 210 mg/dL <200 [facility] Work Phone: Comment on above: <200 mg/dL Desirable 200-240 mg/dL Borderline >240 mg/dL High Risk Glucose [Mass/Vol] 119 mg/dL 74-106 [facility] Work Phone: Comment on above: Fasting Glucose resu lt from 100 to 125 mg/dL suggests IMPAIRED HOMEOSTASIS per A.D.A. criteria. Potassium [Moles/Vol] 3.6 mmol/L 3.5-5.1 [facility] Work Phone: Sodium [Moles/Vol] 139 mmol/L 136-145 [facility] Work Phone: Triglyceride [Mass/Vol] 200 mg/dL <199 [facility] Work Phone: Comment on above: The drugs N-Acetylcy steine and Metamizole may falsely depress this assay.Serum Triglycerides Reference Interval Normal <150 mg/dL Borderline high 150 - 199 mg/dL High 200 - 499 mg/dL Very High > or = 500 mg/dL Laboratory - Chemistry and C hemistry - challengeon 08-19-2021 CO2 [Moles/Vol] 28.0 mmol/L 21.0-32.0 [facility] Work Phone: Urea nitrogen/Creatinine [Mass ratio] 12.1 mg/mg 10- [facility] Work Phone: No Panel Informationon 08-19 Estimated GFR (MDRD) Amer 85 mL/min >60 [facility] Work Phone: Comment on above: GFR Calc Estimated GFR (MDRD) Non-Af Amer 70 mL/min >60 [facility] Work Phone: Comment on above: Non- GFR Calc Vitamin D 25-Hydroxy 19.2 ng/mL [facility] Work Phone: Comment on above: Vitamin D 25(OH) Sta tus Range Deficiency <20 ng/mL (50nmol/L) Insufficiency 20 - 30 ng/mL (50 - 75 nmol/L) Sufficiency 30 - 100 ng/mL (75 - 250 nmol/L) Toxicity >100 ng/mL (>250 nmol/L) Serum or plasma calcium olesya urement (mass/volume)on 08-19-2021 Calcium [Mass/Vol] 9.2 mg/dL 8.5-10.1 [facility] Work Phone: Serum or plasma cholesterol in HDL measurement (mass/volume)on 08-19-2021 Cholesterol in HDL [Mass/Vol] 35 mg/dL >40 [facility] Work Phone: Comment on above: The drugs N-Acetylcy steine and Metamizole may falsely depress this assay. Reference Range HDL <40 mg/dL Low HDL Cholesterol HDL >or= 60 mg/dL High HDL Cholesterol Serum or plasma cholesterol in VLDL measurement (mass/volume)on 08-19-2021 Cholesterol in VLDL [Mass/Vol] 40 mg/dL 5-40 [facility] Work Phone: Serum or plasma creatinine m easurement (mass/volume)on 08-19-2021 Creatinine [Mass/Vol] 0.91 mg/dL 0.55-1.02 [facility] Work Phone: Comment on above: The validity of the calculated GFR & GFRAA in patients over 70 years has not been determined. Clinical correlation is essential. Serum or plasma low density lipoprotein (LDL) cholesterol measurement (mass/volume)on 08-19-2021 Cholesterol in LDL [Mass/Vol] 135 mg/dL 0-130 [facility] Work Phone: Serum or plasma urea nitroge n measurement (mass/volume)on 08-19-2021 Urea nitrogen [Mass/Vol] 11 mg/dL 7-18 [facility] Work Phone: Thin prep Papanicolaou smear with manual screeningon 08-19-2021 Thin prep Papanicolaou smear with manual screening 6 5-15 [facility] Work Phone: CNOVon 09-15-2018 CNOV Office Visit (PAPAS ) MACRINA ALMONTE ([id number]) 1975 F Date Time Provider Department 09/15/18 1:30 PM MELODIE RIDLEY During your visit today, we recorded the following information about you: Temperature Blood pressure Weight 98.2 degrees 130/92 93.9 kg Melodie Ridley MD 09/24/2018 9:17 PM Signed Ms. Almonte is s/p laparoscopic appendectomy on 08/19/18 Pathology reveals acute and chronic appendicitis, acute serositis, fibrofatty obliteration of appendiceal lumen Complaint of drainage and foul odor from suprapubic trocar site. Examination: abdomen is soft and benign. Suprapubic trocar site is at fold of panniculus. With very small opening, but no present drainage Impression: s/p laparoscopic appendectomy Plan: Told patient to wash with antibacterial soap. Area of moist skin due to fold in panniculus, told patient to keep area clean and dry, use gauze padding if need be to allow wound to heal. follow up as per needed. Patient to return to her primary physician for medical care. Referring Provider: [facility] [[id number]] Allergies As of Date: 09/15/2018 (No Known Allergies) Date Reviewed: 09/15/2018 Reviewed by: Sasha Collier RN - Fully Assessed Reason for Visit: Post Op [174] Primary Visit Diagnosis:Status post laparoscopic appendectomy [Z90.49] Prescriptions as of 09/15/2018 Sig: LISINOPRIL 10 MG-HYDROCHLOROT* hydroCHLOROthiazide / Lisinop* VENLAFAXINE ER 75 MG CAPSULE,* 75 mg. Problem List As Of Date: 09/15/2018 (None) Encounter Status:Closed by MD MELODIE RIDLEY on 09/24/18 Normal [facility] PROGRESSon 09-15-2018 Protein mass conc HNO ID: [id number] Author: Melodie Ridley Service: ? Author Type: Physician Type: Progress Notes Filed: 09/24/2018 9:17 PM Note Text: Ms. Almonte is s/p laparoscopic appendectomy on 08/19/18 Pathology reveals acute and chronic appendicitis, acute serositis, fibrofatty obliteration of appendiceal lumen Complaint of drainage and foul odor from suprapubic trocar site. Examination: abdomen is soft and benign. Suprapubic trocar site is at fold of panniculus. With very small opening, but no present drainage Impression: s/p laparoscopic appendectomy Plan: Told patient to wash with antibacterial soap. Area of moist skin due to fold in panniculus, told patient to keep area clean and dry, use gauze padding if need be to allow wound to heal. follow up as per needed. Patient to return to her primary physician for medical care. Normal [facility] CNOVon 08-25-2018 CNOV Office Visit (GENSWS ) MACRINA ALMONTE ([id number]) 1975 F Date Time Provider Department 08/25/18 10:10 AM MELODIE RIDLEY During your visit today, we recorded the following information about you: Melodie Ridley MD 08/25/2018 12:29 PM Signed Ms. Almonte is s/p laparoscopic appendectomy on 08/19/18 Pathology reveals acute and chronic appendicitis, acute serositis, fibrofatty obliteration of appendiceal lumen Patient had difficult airway intubation. Has noted chipped front incisor tooth. Also notes frontal headaches since surgery. Examination: abdomen is soft and benign. Wounds are healing well, dry and intact. Impression: s/p laparoscopic appendectomy Plan: follow up as per needed. Patient to return to her primary physician for medical care. Referring Provider: MELODIE RIDLEY [[id number]] Allergies As of Date: 08/25/2018 (No Known Allergies) Date Reviewed: 08/25/2018 Reviewed by: eMlodie Ridley - Fully Assessed Reason for Visit: Post Op [174] Cmt: post op Appy Primary Visit Diagnosis:Status post laparoscopic appendectomy [Z90.49] Prescriptions as of 08/25/2018 Sig: LISINOPRIL 10 MG-HYDROCHLOROT* hydroCHLOROthiazide / Lisinop* VENLAFAXINE ER 75 MG CAPSULE,* 75 mg. Problem List As Of Date: 08/25/2018 (None) Encounter Status:Closed by MD MELODIE RIDLEY on 08/25/18 Normal [facility] PROGRESSon 08-25-2018 Protein mass conc HNO ID: [id number] Author: Melodie Ridley Service: ? Author Type: Physician Type: Progress Notes Filed: 08/25/2018 12:29 PM Note Text: Ms. Almonte is s/p laparoscopic appendectomy on 08/19/18 Pathology reveals acute and chronic appendicitis, acute serositis, fibrofatty obliteration of appendiceal lumen Patient had difficult airway intubation. Has noted chipped front incisor tooth. Also notes frontal headaches since surgery. Examination: abdomen is soft and benign. Wounds are healing well, dry and intact. Impression: s/p laparoscopic appendectomy Plan: follow up as per needed. Patient to return to her primary physician for medical care. Normal [facility] Vital Signs Date Time Vital Sign Value Performing Clinician Efren lopes 12-01-2022 15:23-0400 Body height 157.[address] Eron Martínez Work Phone: [facility] 12-01-2022 15:23-0400 Body mass index (BMI) [Ratio] 41.3 kg/m2 Dr. Eron Martínez Work Phone: [facility] 12-01-2022 15:23-0400 Body weight 102.[address] Eron Martínez Work Phone: [facility] 12-01-2022 15:23-0400 Diastolic blood pressure 86 mm[Hg] Dr. Eron Martínez Work Phone: [facility] 12-01-2022 15:23-0400 Systolic blood pressure 128 mm[Hg] Dr. Eron Martínez Work Phone: [facility] 05-28-2022 23:24-0500 Body height 157.[address] Eron Martínez Work Phone: [facility] 05-28-2022 23:24-0500 Body mass index (BMI) [Ratio] 42 kg/m2 Dr. Eron Martínez Work Phone: [facility] 05-28-2022 23:24-0500 Body temperature 97.5 [degF] Dr. Eron Martínez Work Phone: [facility] 05-28-2022 23:24-0500 Body weight 104.[address] Eron Martínez Work Phone: [facility] 05-28-2022 23:24-0500 Diastolic blood pressure 115 mm[Hg] Dr. Eron Martínez Work Phone: [facility] 05-28-2022 23:24-0500 Heart rate 116 /min Dr. Eron Martínez Work Phone: [facility] 05-28-2022 23:24-0500 Respiratory rate 20 /min Dr. Eron Martínez Work Phone: [facility] 05-28-2022 23:24-0500 SaO2% (BldA) [Mass fraction] 97 % Dr. Eron Martínez Work Phone: [facility] 05-28-2022 23:24-0500 Systolic blood pressure 187 mm[Hg] Dr. Eron Martínez Work Phone: [facility] 05-20-2022 07:14-0500 Body temperature 98.5 [degF] Dr. Eron Martínez Work Phone: [facility] 05-20-2022 07:14-0500 Diastolic blood pressure 96 mm[Hg] Dr. Eron Martínez Work Phone: [facility] 05-20-2022 07:14-0500 Heart rate 95 /min Dr. Eron Martínez Work Phone: [facility] 05-20-2022 07:14-0500 Respiratory rate 18 /min Dr. Eron Martínez Work Phone: [facility] 05-20-2022 07:14-0500 SaO2% (BldA) [Mass fraction] 96 % Dr. Eron Martínez Work Phone: [facility] 05-20-2022 07:14-0500 Systolic blood pressure 124 mm[Hg] Dr. Eron Martínez Work Phone: [facility] 05-20-2022 06:06-0500 Body height 160.[address] Eron Martínez Work Phone: [facility] 05-20-2022 06:06-0500 Body mass index (BMI) [Ratio] 41.3 kg/m2 Dr. Eron Martínez Work Phone: [facility] 05-20-2022 06:06-0500 Body weight 105.[address] Eron Martínez Work Phone: [facility] 11-26-2021 15:26-0400 Body height 160.[address] Eron Martínez Work Phone: [facility] Work Phone: 11-26-2021 15:25-0400 Body mass index (BMI) [Ratio] 42.1 kg/m2 Dr. Eron Martínez Work Phone: [facility] Work Phone: 11-26-2021 15:25-0400 Body weight 107.[address] Eron Martínez Work Phone: [facility] Work Phone: 11-26-2021 15:25-0400 Diastolic blood pressure 122 mm[Hg] Dr. Eron Martínez Work Phone: [facility] Work Phone: 11-26-2021 15:25-0400 Systolic blood pressure 164 mm[Hg] Dr. Eron Martínez Work Phone: [facility] Work Phone: Encounters Encounter Date Encounter Type Care Provider Facility Start: 06-21-2024 End: 06-21-2024 Subsequent hospital visit by physician Ye Ut Carly [facility] Comment on above: Impaired fasting glu cose; Bronchitis, not specified as acute or chronic; Essential (primary) hypertension Start: 06-21-2024 End: 06-21-2024 ambulatory [facility] Start: 12-09-2023 End: 12-09-2023 ambulatory [facility] Facility:[facility] Start: 12-05-2023 End: 12-05-2023 ambulatory Chasity Mclaughlin Facility:[facility] Start: 12-05-2023 End: 12-05-2023 ambulatory [facility] Facility:[facility] Start: 08-29-2023 End: 08-29-2023 ambulatory [facility] Work Phone: Start: 08-29-2023 End: 08-29-2023 Patient encounter procedure [facility] Work Phone: Start: 08-29-2023 End: 08-29-2023 ambulatory Vahe Martínez Facility:[facility] Start: 04-28-2023 End: 04-28-2023 ambulatory Vahe Martínez Facility:[facility] Start: 12-03-2022 End: 12-03-[address] Eron Martínez Work Phone: [facility] Work Phone: Start: 12-03-2022 End: 12-03-[address] Eron Martínez Work Phone: [facility] Work Phone: Start: 12-01-2022 End: 12-01-[address] Eron Martínez Work Phone: [facility] Work Phone: Start: 10-26-2022 End: 10-26-2022 ambulatory [facility] Work Phone: Start: 10-26-2022 End: 10-26-2022 Patient encounter procedure [facility] Work Phone: Start: 05-28-2022 End: 05-29-2022 Emergency department patient visit Dr. Eron Martínez Work Phone: [facility] Start: 05-20-2022 Non-patient / Non-visit Dr. Felecia Martínez Work Phone: [facility] Start: 05-20-2022 End: 05-20-2022 Admission to same day surgery center Dr. Eron Martínez Work Phone: [facility] Start: 05-20-2022 End: 05-20-[address] Eron Martínez Work Phone: [facility] Work Phone: Start: 12-02-2021 End: 12-02-[address] Eron Martínez Work Phone: [facility] Start: 11-26-2021 End: 11-26-[address] Eron Martínez Work Phone: [facility] Start: 11-20-2021 End: 11-20-2021 Patient encounter procedure [facility] Start: 08-19-2021 End: 08-19-2021 Patient encounter procedure [facility] Procedures Date Procedure Procedure Detail Performing Clinician Start: 12-03-2022 Screening mammography Feng Martínez Work Phone: Start: 05-28-2022 Plain chest X-ray Dr. Mateus Martínez Work Phone: Start: 05-20-[address] Melvin Martínez Work Phone: Start: 11-20-2021 Screening mammography SARS-CoV-2 & FLU Ant igen (Rapid) Dr. Eron Martínez Work Phone: Plan of Treatment Date Care Activity Detail Author Start: 08-19-2031 DTaP/Tdap/Td Vaccine s (2 - Td or Tdap) DTaP/Tdap/Td Vaccines (2 - Td or Tdap) [facility] Start: 2024 Zoster Vaccines (1 of 2) Zoste r Vaccines (1 of 2) [facility] Start: 01-01-2024 COVID-19 Vaccine ( season) COVID-19 Vaccine ( season) [facility] Start: 01-01-2024 Influenza vaccination Influenz a Vaccine (#1) [facility] Start: 05-28-2022 [facility] Start: 05-20-2022 [facility] Start: 12-02-2021 [facility] Work Phone: Start: 2014 Screening for malign ant neoplasm of breast Mammogram [facility] Start: 09-04-1995 Screening for malign ant neoplasm of cervix [facility] Start: 1993 Hepatitis B Vaccines (1 of 3 - 19+ 3-dose series) Hepatitis B Vaccines (1 of 3 - 19+ 3-dose series) [facility] Start: 1992 Hepatitis C screening Hepatiti s C Screening [facility] Start: 09-04-1975 MMR Vaccines (1 of 1 - Standard series) MMR Vaccines (1 of 1 - Standard series) [facility] Start: 1974 HIV screening HIV Screening [facility] Start: 1974 Lipid panel Lipid Panel [facility] Start: 1974 Screening for malign ant neoplasm of colon [facility] Start: 1974 Yearly Adult Physical Yearly A dult Physical [facility] End: 06-21-2024 CT for calcium scoring WO contrast and CTA W contrast IV Heart and coronary arteries [facility] Service Area Work Phone: Comment on above: Once for 1 Occurrenc es starting 06/21/2024 until 06/21/2024 DNA double strand Ab [Units/volume] in Serum [facility] Work Phone: Liquid based cervica l cytology screening [facility] MG Breast - bilatera l Screening [facility] Work Phone: Nuclear Ab [Titer] i n Serum by Immunofluorescence [facility] Work Phone: Patient Education ED Upper Resp Infec Abx Tx [facility] Work Phone: Patient referral [facility] Work Phone: Urine test [facility] Immunizations Immunization Date Immunization Notes Care Provider Linnette ureña 02-12-2015 influenza virus vacc ine, unspecified formulation Ye 1 [facility] Work Phone: Payers Date Payer Category Payer Managed Care (Private) JOSEFA GUSTAFSON [facility] [id number] Private Health Insurance [id number] 2023 Self-pay [id number] 2020 Unknown [id number] 1974 Unknown [id number] Unknown [id number] Unknown [id number] Unknown [id number] Unknown [id number] Unknown [id number] Social History Date Type Detail Facility Tobacco smoking status NHIS Unknown if ever smoked [facility] Work Phone: Start: 1975 Sex Assigned At Female [facility] Start: 11-06-2020 End: 04-28-2023 Tobacco smoking status NHIS Unknown if ever smoked [facility] Start: 1975 Sex assigned at Not on file [facility] Work Phone: Gender identity Not on file [facility] Work Phone: Start: 06-11-2024 End: 06-21-2024 Exposure to SARS-CoV-2 (event) Not sure [facility] NEGATED: Highlighted row [facility] Medical Equipment Procedure Code Equipment Code Equipment Origin al Text Equipment Identifier Dates Appendectomy, laparoscopic RELOAD,VASCULAR TISSUE FDA Start: 08-19-2018 Appendectomy, laparoscopic RELOAD,VASCULAR TISSUE FDA Start: 08-19-2018 Appendectomy, laparoscopic RELOAD,VASCULAR TISSUE FDA Start: 08-19-2018 Appendectomy, laparoscopic RELOAD,VASCULAR TISSUE FDA Start: 08-19-2018 Appendectomy, laparoscopic RELOAD,VASCULAR TISSUE FDA Start: 08-19-2018 Appendectomy, laparoscopic RELOAD,VASCULAR TISSUE FDA Start: 08-19-2018 Appendectomy, laparoscopic RELOAD,VASCULAR TISSUE FDA Start: 08-19-2018 Appendectomy, laparoscopic RELOAD,VASCULAR TISSUE FDA Start: 08-19-2018 Appendectomy, laparoscopic RELOAD,VASCULAR TISSUE FDA Start: 08-19-2018 Appendectomy, laparoscopic RELOAD,VASCULAR TISSUE FDA Start: 08-19-2018 Goals Date Patient Goal Desired Activity /State Mental Status Date Assessment Result Facility 05-20-2022 Cognitive function Voice/Name [facility] Work Phone: Procedure note 05-20-2022 Note Date & Type Note Facility 05-20-2022 Procedure note [facility] Procedure note 05-20-2022 Note Date & Type Note Facility 05-20-2022 Procedure note [facility] Evaluation note Note Date & Type Note Facility Evaluation note No assessment information availa ble [facility] Work Phone: Evaluation note Note Date & Type Note Facility Evaluation note Diagnosis Onset Date Encounter for routine gyneco logical examination noneactive [facility] Work Phone: Evaluation note Note Date & Type Note Facility Evaluation note Diagnosis Onset Date Encounter for screening for malignant neoplasm of colon acute [facility] Work Phone: Evaluation note Note Date & Type Note Facility Evaluation note Diagnosis Impaired fasting glucose Bronchitis, not specified as acute or chronic Essential (primary) hypertension Unspecified essential hypertension documented in this encounter [facility] Work Phone: History and physical note Note Date & Type Note Facility History and physical note Note Date/Time May 20, 2022 6:36am [facility] Medical Records Department [address] [place] [address] History & Physical Exam 05/20/22 0635 MR#: [id number] Acct: [id number] Name: MACRINA ALMONTE Rep #:[id number] : 1975 46 From: [facility] Friend PCP: Dr. Eron Martínez MD Status: [facility] Location: [place] [address] HPI - General General Date of Admission: 05/20/22 Date of Service: 05/20/22 Chief Complaint: Screening colonoscopy HPI Narrative MACRINA ALMONTE, is a 46 F who presents today for screening colonoscopy. She has not had a colonoscopy in the past. She does not have any abdominal pain. She not have any bleeding. Is not having any chest pain shortness of breath. Overall she is in very good health. [facility] Medical History Gastric reflux Hypertension Internal hemorrhoids Non-smoker PONV (postoperative nausea and vomiting) Shortness of breath on exertion Home Medications lisinopril 10 mg-hydrochlorothiazide 12.5 mg tablet 1 tab PO DAILY BP 08/19/18 [History Last Taken 08/18/18] venlafaxine 75 mg capsule,extended release 24 hr (Effexor XR) 75 mg PO DAILY depression 08/19/18 [History Last Taken 08/18/18] cholecalciferol (vitamin D3) 25 mcg (1,000 unit) capsule 25 mcg PO DAILY SUPPLEMENT 12/31/21 [History Last Taken Unknown] Allergy/AdvReac Type Severity Reaction Status Date / Time No Known Allergies Allergy Verified 05/17/22 12:27 Family History Mother Hypertension Aunt Cervical cancer Surgical History History of appendectomy History of colonoscopy S/P endometrial ablation Social History Smoking Status: Never smoker alcohol intake: never substance use type: does not use caffeine: Yes what type of physical activity do you participate in: additional details: crossfit frequency: 3-4 times per week seatbelt use: always do you feel safe at home: Yes additional social history: [place] early 2021 at [facility] from [place] Patient works at [employer] ROS Review of Systems ROS Unobtainable: other Constitutional Constitutional: Denies fatigue, fever(s), poor appetite, weight gain or weight loss ENT HEENT: Denies mouth lesions Cardiovascular Cardiovascular: Denies abdominal bloating, abdominal edema or abdominal pain Respiratory/Chest Respiratory/Chest: Denies change in mental status, change in phlegm color, chestcongestion or chest tightness Gastrointestinal Gastrointestinal: Denies belching, bloating, change in bowel habits, change in stool character, chewing difficulty, coffee ground emesis, constipation, cramping, diarrhea, dyspepsia, dysphagia, early satiety, excessive flatus, fecalincontinence, heartburn, hematemesis, hematochezia, hemorrhoids, loose stools, melena, nausea, odynophagia, rectal bleeding, tenesmus, vomiting or weight changes Genitourinary Genitourinary: Denies abdominal discomfort, burning urination or itching Musculoskeletal Musculoskeletal: Reports as per HPI; Denies muscle weakness or myalgias Integumentary Integumentary: Denies jaundice Neurologic Neurologic: Denies lack of coordination or weakness Psychiatric Psychiatric: Denies confusion, depression, memory loss, mood swings, paranoia orsuicidal ideation Endocrine Endocrinology: Denies systems reviewed and no addt'l complaints, except as documented Hematologic/Lymphatic Hematologic/Lymphatic: Denies anemia, easy bleeding, easy bruising or lymphadenopathy Allergic/Immunologic Allergic/Immunologic: Denies systems reviewed and no addt'l complaints, except as documented Vital Signs Vital Signs Vital Signs: 05/20/22 06:06 05/20/22 06:06 Temperature 97.8 F Temperature Source Temporal Pulse Rate 94 Respiratory Rate 18 Respiratory Pattern Normal Blood Pressure 146/100 H Blood Pressure Mean 115 Blood Pressure Source Monitor Blood Pressure Position Sitting Blood Pressure Location Right Arm Pulse Ox 97 Oxygen Delivery Method Room Air Weight Weight: 233 lb 0.458 oz Body Mass Index (BMI) 41.3 Physical Exam Const alert General Appearance: cooperative Orientation / Consciousness: oriented to person HEENT hearing grossly normal bilaterally Head and Scalp: normal to inspection Face and Sinus: face symmetric Nose: external nose normal Mouth: oral and palatal mucosa normal Eyes conjunctivae normal General Eye: normal appearance of both eyes Neck full ROM General: normal visual inspection Lymph Lymphatic: no lymphadenopathy noted Chest inspection of chest normal and palpation of chest normal Chest: symmetrical chest wall rise Resp normal respiratory effort Effort and Inspection: able to speak in complete sentences Cardio regular rate GI non-distended Percussion: normal to percussion Rectal Exam: deferred Neuro Speech: speech normal Gait (Neuro): normal gait Results Lab / Micro Data Labs: Laboratory Results - last 24 hr 05/20/22 05:42: Urine Test Negative Assessment & Plan Assessment/Plan (1) Encounter for screening for malignant neoplasm of colon: PLAN: She will undergo screening colonoscopy. She was explained alternatives, risk, benefits including not withstanding bleeding, infection, sepsis, perforation, need for emergent surgery . She have an ASA of 1. 05/20/22 0636 <Electronically signed by Julio Luke DO> Cosigner Signature (if applicable): CC: Dr. Eron Martínez MD; Julio Luke DO~ Signed [facility] Work Phone: Reason for visit Narrative Imaging (Routine) - Pending Review Note Date & Type Note Facility Reason for visit Narrative Specialty Diagnoses / Procedures Referred By Contac t Referred To Contact Radiology Diagnoses Impaired fasting glucose Bronchitis, not specified as acute or chronic Essential (primary) hypertension Procedures CT cardiac scoring wo IV contrast Vahe Martínez MD [address] [place] [address] Phone: tel: fax: Referral ID Status Reason Start Date Expiration Date Visits Requested Visits Authorized [id number] Pending Review Perform Procedure 05/15/2024 05/15/2025 1 1 [facility] Work Phone: Summary Purpose Family History No Family History Records Found Relationship Condition Age at Onset Recorded Date/T josé luis mother Hypertension Unknown aunt Malignant neoplasm of cervix Unknown Advance Directives No Advanced Directives Records Found Advance Directive Response Recorded Date/ Time Living Will No August 19, 2018 9:27pm Power of Buffet Manager No August 19 9:27pm Advance Directive Response Recorded Date/ Time Living Will No May 17 12:28pm Power of Buffet Manager No May 17, 2022 12:28pm Advance Directive Response Recorded Date/ Time Living Will No May 29 12:39am Power of Buffet Manager No May 29, 2022 12:39am Advance Directive Response Recorded Date/ Time Living Will No May 29 1:39am Power of Buffet Manager No May 29, 2022 1:39am Chief Complaint and Reason for Visit Chief Complaint SCREENING Chief Complaint SCREENING Annual (NETWORK CABLER) Reason for Visit Encounter for routin e gynecological examination Reason for Visit Encounter for screen ing for malignant neoplasm of colon Chief Complaint COUGH Reason for Visit Encounter for screen ing for malignant neoplasm of colon Chief Complaint E ORDERS Chief Complaint E ORDERS Annual (NETWORK CABLER) SCREENING Reason for Visit Encounter for routin e gynecological examination Additional Source Comments INFORMATION SOURCE (unrecogn ized section and content) DATE CREATED AUTHOR 10/08/2018 [facility] DATE CREATED AUTHOR AUTHOR'S ORGANIZ ATION 01/07/2024 [facility] DATE CREATED AUTHOR AUTHOR'S ORGANIZ ATION 06/28/2024 [facility] Goals (unrecognized section and content) Goals may be documented in a n alternate sectionGoals may be documented in an alternate sectionGoals may be documented in an alternate sectionGoals may be documented in an alternate sectionGoals may be documented in an alternate sectionGoals may be documented in an alternate sectionGoals may be documented in an alternate sectionGoals may be documented in an alternate section Care Teams (unrecognized sec tion and content) Team Status: Active Member Role Status Dates Dr. Eron Martínez MD Family Provider Active Dr. Eron Martínez MD Primary Care Provider Activ e Team Status: Active Member Role Status Dates Dr. Eron Martínez MD Primary Care Provider, Refe rring Provider Active Dr. Julio Luke DO Attending Provider, Other Prov ider Active Team Status: Inactive Member Role Status Dates Dr. Eron Martínez MD Primary Care Provider, Refe rring Provider Active Dr. Julio Luke DO Attending Provider Active Team Status: Inactive Member Role Status Dates Dr. Eron Martínez MD Primary Care Provider Activ e Oscar Pryor MD Emergency Provider Active Team Status: Inactive Member Role Status Dates Dr. Eron Martínez MD Primary Care Provider, Attending Provider, Referring Provider Active Team Status: Inactive Member Role Status Dates Dr. Eron Martínez MD Primary Care Provider, Refe rring Provider Active Dr. Chasity Mclaughlin DO Attending Provider Activ e Team Status: Inactive Member Role Status Dates Dr. Eron Martínez MD Primary Care Provider Activ e Dr. Chasity Mclaughlin DO Attending Provider, Refe rring Provider Active Team Status: Active Member Role Status Dates Dr. Vahe Martínez MD Family Provider Active Dr. Vahe Martínez MD Primary Care Provider Acti ve Team Status: Inactive Member Role Status Dates Dr. Vahe Martínez MD Primary Care Provider, Attending Provider, Referring Provider Active FOR RECORDS PERTAINING TO PATIENTS WHO ARE OR HAVE BEEN ENROLLED IN A CHEMICAL DEPENDENCY/SUBSTANCEABUSE PROGRAM, SOME INFORMATION MAY BE OMITTED. This clinical summary was aggregated from multiple sources. Caution should be exercised in using it in the provision of clinical care. This summary normalizes information from multiple sources, and as a consequence, information in this document may materially change the coding, format and clinical context of patient data. In addition, data may be omitted in some cases. CLINICAL DECISIONS SHOULD BE BASED ON THE PRIMARY CLINICAL RECORDS. [facility] [employer] provides no warranty or guarantee of the accuracy or completeness of information in this document.
== END | disposition home or self-care (01) ==
LOC: OPBI 08:25
PROVIDERS: PCP Family Medicine; Referring Provider Obstetrics & Gynecology; Visit Provider Obstetrics & Gynecology
DX: Z12.31 Encounter for screening mammogram for malignant neoplasm of breast (principal)
CPT/HCPCS: 77063; 77067

== ENCOUNTER → 2025-02-23 | Outpatient (CLI) | payer OTHER, SELFPAY ==
--- OUTSIDE RECORDS SUMMARY | 2025-02-23 07:53 | XMS RPT_ITS | CCD ---
Author Organization [facility] CliniSymn Care Team Providers Care Digital Content Marketing Manager Name Role Phone Dr. Eron Martínez Primary Care Provider Dr. Eron Martínez Referring Provider Dr. Chasity Mclaughlin Attending Provider [phone] Dr. Eron Martínez Primary Care Provider [phone] Dr. Eron Martínez Referring Provider FriendDr. Kim Attending Provider [phone] Other Provider Dr. Eron Martínez Primary Care Provider Dr. Eron Martínez Referring Provider Dr. Chasity Mclaughlin Attending Provider Unavailable Primary Care Provider VAHE Dee Referring Unavail Dr. Vahe Zepeda MD Primary Care Provider Dr. Chasity Mclaughlin DO Attending Provider Dr. Chasity Mclaughlin DO Referring Provider Dr. Vahe Martínez MD Referring Provider Vahe Martínez Primary Care Unavailable Chasity Mclaughlin Attending Vahe Dee Referring Unavailable Chasity Mclaughlin Referring Chasity Wilson Attending Vahe Dee Primary Care Unavailable Allergies Allergy Classification Reported Allergen(s) Allergy Type Date of Onset Reaction(s) Facility (1 source) ALLERGIES NOT ON FILE; Translations: [ALLERGIES NOT ON FILE] Propensity to adverse reactions (disorder) [facility] 2 Repository Medications Current Medications Medication Drug Class(es) Dates Sig (Normalized) Sig (Original) cholecalciferol 0.025 mg oral capsule (7 sources) Vitamin D Start: 12-31-2021 take 1 capsule by mouth once daily Cholecalciferol (Vitamin D3) 25 mcg (1,000 unit) capsule Active 25 ug PO DAILY December 31, 2021 12:00am SUPPLEMENT hydroCHLOROthiazide 12.5 mg / lisinopril 10 mg oral tablet (12 sources) Thiazide Diuretic, Angiotensin Converting Enzyme Inhibitor Start: 08-19-2018 Lisinopril-Hydrochl orothiazide 1 EACH tablet Active 1 {tbl} PO DAILY August 19, 2018 12:00am BP Start: 08-19-2018 take 1 tablet by rocio th once daily Lisinopril-Hydrochlorothiazide Active 1 TABLET PO DAILY August 19, 2018 12:00am semaglutide (weight loss) (2 sources) Start: 12-14-2024 semaglutide (w eight loss) Active SC .once a week December 14, 2024 12:00am Completed/Discontinued Medications Medication Drug Class(es) Dates Sig (Normalized) Sig (Original) amoxicillin 875 mg / clavulanate 125 mg oral tablet (3 sources) Penicillin-class Antibacterial Start: 04-28-2023 End: 05-08-2023 Amoxicillin-Pot Clavulanate 875-125 mg tablet Discontinued 1 {tbl} PO Q12H 20 10 0 April 28, 2023 1:00am May 07, 2023 1:00am May 08, 2023 1:04am Acute sinusitis, unspecified Start: 04-28-2023 End: 05-08-2023 take 1 tablet by mouth every twelve hours Amoxicillin-Pot Clavulanate Discontinued 1 TABLET PO Q12H 20 April 28, 2023 1:00am May 08, 2023 1:04am oxyCODONE hydrochloride 5 mg oral tablet (12 sources) Opioid Agonist Start: 08-20-2018 End: 08-25-2018 take 1 tablet by mouth every eight hours as needed for pain Oxycodone 5 MG tablet Discontinued 5 mg PO EVERY 8 HOURS NEEDED as needed for Mod-Severe Pain (4-10/10) 15 5 0 August 20, 2018 10:46am August 24, 2018 12:00am August 25, 2018 12:09am 24 hr venlafaxine 150 mg extended release oral capsule (16 sources) Serotonin and Norepinephrine Reuptake Inhibitor Start: 12-05-2023 End: 12-14-2024 take 1 capsule by mouth once daily Venlafaxine (Effexor Xr) 150 mg capsule,extended release 24hr Discontinued 150 mg PO DAILY 90 4 January 05, 2024 12:23pm December 14, 2024 8:58am Start: 08-19-2018 take 1 capsule by mo [facility] once daily Venlafaxine (Effexor Xr) 75 MG capsule,extended release 24hr Active 75 mg PO DAILY August 19, 2018 12:00am depression Problems Problem Classification Problem Date Documented Da te Episodic/Chronic Anxiety disorders (12 sources) Anxiety; Translations: [Anxiety disorder, unspecified] 11-06-2020 Chronic Chronic obstructive pulmonary disease and bronchiectasis (10 sources) Bronchitis; Translations: [Bronchitis, not specified as acute or chronic] Onset: 06-21-2024 05-29-2022 Episodic Diabetes mellitus without complication (4 sources) Impaired fasting glycemia; Translations: [Impaired fasting glucose] Onset: 06-21-2024 06-21-2024 Episodic Essential hypertension (16 sources) Hypertensive disorder; Translations: [Essential (primary) hypertension] Onset: 06-21-2024 11-06-2020 Chronic Other screening for suspected conditions (not mental disorders or infectious disease) (10 sources) Patient encounter status; Translations: [Encounter for screening for malignant neoplasm of colon] Onset: 12-20-2024 12-31-2021 Episodic Other upper respiratory infections (9 sources) Upper respiratory infection; Translations: [Acute upper respiratory infection, unspecified] 05-29-2022 Episodic Results Test Name Value Interpretation Reference Range Facility Breast imaging reportOrdered By: Tyra Bermeo on 12-14-2024 Study report [facility] Services [address] [place] [address] [id number] SCRN MAMM (CAD)W/AMITA HEALY MR#: [id number] Acct: [id number] Name: MACRINA ALMONTE CON Rep #: [id number] : 1975 F 49 From: Mildred Bermeo MD PCP: Dr. Vahe Martínez MD Status: REG CLI Study:SCRN MAMM (CAD)W/AMITA BILAT Date of Exa m: 12/14/24 Exam# [id number] Ordering Dr: Chasity Flores DO EXAM: SCRN MAMM (CAD)W/AMITA BILAT DATE: 12/14/2024 CLINICAL HISTORY: F, Age 49 y/o , SCREEN FOR BREAST CANCER TECHNIQUE: SCRN MAMM (CAD)W/AMITA BILAT COMPARISON: Prior exam(s) dated 12/09/2023, 12/03/2022, 11/20/2021. FINDINGS: TISSUE DENSITY: There are scattered areas of fibroglandular density. Bilateral Breast Mammographic Findings: No significant masses, calcifications or other abnormalities are identified. BI/SCRN MAMM (CAD)W/AMITA BILAT IMPRESSION: There is no mammographic evidence of malignancy. OVERALL FINAL ASSESSMENT BI-RADS 1: NEGATIVE. RECOMMENDATION: Routine annual follow-up in 1 Year A letter with findings and recommendations will be mailed to the patient. Reading Location: [facility] CC: Dr. Vahe Martínez MD; Dr. Chasity Mclaughlin DO ~ Envelope Machine Operator: Signed [facility] Repairer Shoe Sticks Office Visit Reporton 12-14-2024 Repairer Shoe Sticks Office Visit Report [facility] [address], [address] [place] [address] OFFICE VISIT Date of Service: 12/14/24 MR#: [id number] Acct: [id number] Name: MACRINA ALMONTE CON Rep #: [id number] : 1975 Provider: Dr. 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 Is patient in pain?: No Allergies No Known Allergies Allergy (Verified 12/14/24 08:55) Medications ???Medication ???Instructions ???Recorded ???Confirmed ???Type lisinopril 10 1 tab PO DAILY BP 08/19/18 5 History mg-hydrochlorothiazide 12.5 mg tablet venlafaxine 75 mg capsule,extended 75 mg PO DAILY depression 12/05/23 History release 24 hr (Effexor XR) cholecalciferol (vitamin D3) 25 25 mcg PO DAILY SUPPLEMENT 2 12/14/24 History mcg (1,000 unit) capsule semaglutide (weight loss) subcut .once a week 12/14/2412/14 History Post menopausal: No Patient : No : No PFSH Medical History PONV (postoperative nausea and vomiting) Gastric reflux Shortness of breath on exertion Non-smoker Internal hemorrhoids Hypertension Surgical History History of appendectomy History of colonoscopy S/P endometrial ablation Family History Mother Hypertension Aunt Cervical cancer Social History (Updated 12/14/24 @ 09:00 by Mayra Dong) Smoking Status: Never smoker alcohol intake: never substance use type: does not use caffeine: Yes what type of physical activity do you participate in: none seatbelt use: always do you feel safe at home: Yes additional social history: Patient works at [employer] History 2 Elective abortions Hx Para 2 Spontaneous abortions Hx # Term Pregnancies Ectopic pregnancies Hx # Pregnancies Multiple births # of living children Past Pregnancies Del. Date Name GA/Weeks Outcome Route Bth Weight Infant Gen Labor Lgth Anesthesia Del Locatn Provider FOB Unknown Beto Unknown Ronnie HPI Encounter for routine gynecological examination Details: MACRINA ALMONTE is a 49 year old who presents for annual exam. son in [employer] doing great. other son in [facility] (working on [employer] and living at home) Last PAP: 12/05/23 History of abnormal PAP: no Last mammogram: today History of abnormal mammogram: no Colon cancer screening: up to date Other preventative health care screenings: states is up to date and just started semiglutide this spring. had an ablation. Female Reproductive History Questions: sexually active: Yes, dyspareunia: No and PCB: [...] acute distress, well developed and well groomed [facility] Head: normal to inspection and normocephalic Ears: hearing grossly normal bilaterally and external ears normal Nose: external nose normal Face and sinus: normal facial exam Neck Neck: normal visual inspection, full ROM and no lymphadenopathy Thyroid: thyroid normal Chest Chest palpation inspection: normal inspection of the chest Breast inspection: normal inspection of the breasts and normal inspection of the axillae Breast palpation: normal palpation of the breasts, normal palpation of the axillae and no axillary lymphadenopathy Resp Effort Inspection: normal respiratory effort GI Inspection: normal to inspection and non-distended Palpation: soft, no hepatosplenomegaly and no guarding Gene (more content not included)... Normal [facility] SCRN MAMM (CAD)W/AMITA Jean n 12-14-2024 SCRN MAMM (CAD)W/AMITA HEALY [facility] Imaging Services [address] [place], [place] [id number] SCRN MAMM (CAD)W/AMITA HEALY MR#: [id number] Acct: [id number] Name: MACRINA ALMONTE Rep #: [id number] : 1975 F 49 From: Tyra Bermeo MD PCP: Dr. Vahe Martínez MD Status: REG CLI Study: SCRN MAMM (CAD)W/AMITA BILAT Date of Exam: 11/30 09/23 Exam# [id number] Ordering Dr: Chasity Mclaughlin DO EXAM: SCRN MAMM (CAD)W/AMITA BILAT DATE: 12/14/2024 CLINICAL HISTORY: F, Age 49 y/o , SCREEN FOR BREAST CANCER TECHNIQUE: SCRN MAMM (CAD)W/AMITA BILAT COMPARISON: Prior exam(s) dated 12/09/2023, 12/03/2022, 11/20/2021. FINDINGS: TISSUE DENSITY: There are scattered areas of fibroglandular density. Bilateral Breast Mammographic Findings: No significant masses, calcifications or other abnormalities are identified. BI/SCRN MAMM (CAD)W/AMITA BILAT IMPRESSION: There is no mammographic evidence of malignancy. OVERALL FINAL ASSESSMENT BI-RADS 1: NEGATIVE. RECOMMENDATION: Routine annual follow-up in 1 Year A letter with findings and recommendations will be mailed to the patient. Reading Location: [facility] CC: Dr. Vahe Martínez MD; Dr. Chasity Mclaughlin DO Envelope Machine Operator: Signed Normal [facility] CT CARDIAC SCORING WO IV CON TRASTon 06-21-2024 CT CARDIAC SCORING WO IV CONTRAST Interpreted By: Sage Ngo, STUDY: CT CARDIAC SCORING WO IV CONTRAST; 06/21/2024 5:04 pm INDICATION: Signs/Symptoms:BRONCHIT IS. COMPARISON: None. ACCESSION NUMBER(S): [id number] ORDERING CLINICIAN: VAHE MARTÍNEZ TECHNIQUE: Using prospective [...] coronary heart disease events. According to the [place] [employer] Clinical Expert Consensus [...] modify other non-lipid coronary risk factors. Reference: [place] P et al. Circulation. 2007; 115:402-426 MACRO: None Signed by: Sage Ngo 06/23/2024 2:32 PM Dictation workstation: [id number] [facility] Basophil percentageOrdered B y: Vahe Martínez on 08-29-2023 Chloride [Moles/Vol] 107 mmol/L 98-107 [facility] Cholesterol [Mass/Vol] 202 mg/dL <200 [facility] Comment on above: <200 mg/dL Desirable 200-240 mg/dL Borderline >240 mg/dL High Risk Glucose [Mass/Vol] 115 mg/dL 74-106 [facility] Comment on above: Fasting Glucose resu lt from 100 to 125 mg/dL suggests IMPAIRED HOMEOSTASIS per A.D.A. criteria. Potassium [Moles/Vol] 3.8 mmol/L 3.5-5.1 [facility] Sodium [Moles/Vol] 141 mmol/L 136-145 [facility] Triglyceride [Mass/Vol] 94 mg/dL <199 [facility] Comment on above: The drugs N-Acetylcy steine and Metamizole may falsely depress this assay.Serum Triglycerides Reference Interval Normal <150 mg/dL Borderline high 150 - 199 mg/dL High 200 - 499 mg/dL Very High > or = 500 mg/dL Laboratory - Chemistry and C hemistry - challengeOrdered By: Vahe Martínez on 08-29-2023 Cholesterol in HDL [Mass/Vol] 38 mg/dL >40 [facility] Comment on above: The drugs N-Acetylcy steine and Metamizole may falsely depress this assay. Reference Range HDL <40 mg/dL Low HDL Cholesterol HDL >or= 60 mg/dL High HDL Cholesterol Cholesterol in LDL [Mass/Vol] 145 mg/dL 0-130 [facility] CO2 [Moles/Vol] 29.0 mmol/L 21.0-32.0 [facility] Urea nitrogen/Creatinine [Mass ratio] 16.3 mg/mg 10-20 [facility] No Panel InformationOrdered By: Vahe Martínez on 08-29-2023 Estimated GFR (MDRD) Amer 83 mL/min >60 [facility] Comment on above: GFR Calc Estimated GFR (MDRD) Non-Af Amer 69 mL/min >60 [facility] Comment on above: Non- GFR Calc Urine Microalbumin/Creatinin e Ratio 7.1 mg/g CRE <30 [facility] VLDL Cholesterol 19 mg/dL 5-40 [facility] Serum or plasma calcium olesya urement (mass/volume)Ordered By: Vahe Martínez on 08-29-2023 Calcium [Mass/Vol] 9.1 mg/dL 8.5-10.1 [facility] Serum or plasma creatinine m easurement (mass/volume)Ordered By: Vahe Martínez on 08-29-2023 Creatinine [Mass/Vol] 0.92 mg/dL 0.55-1.02 [facility] Comment on above: The validity of the calculated GFR & GFRAA in patients over 70 years has not been determined. Clinical correlation is essential. Serum or plasma urea nitroge n measurement (mass/volume)Ordered By: Vahe Martínez on 08-29-2023 Urea nitrogen [Mass/Vol] 15 mg/dL 7-18 [facility] Thin prep Papanicolaou smear with manual screeningOrdered By: Vahe Martínez on 08-29-2023 Thin prep Papanicolaou smear with manual screening 5 5-15 [facility] Thin prep Papanicolaou smear with manual screening 24.5 mg/L NO RANGE EST. [facility] Urine creatinine measurement (mass/volume)Ordered By: Vahe Martínez on 08-29-2023 Creatinine (U) [Mass/Vol] 347.00 mg/dL NO RANGE EST. [facility] Basophil percentageOrdered B y: Eron Martínez on 10-26-2022 Bilirubin [Mass/Vol] 0.40 mg/dL 0.20-1.00 [facility] Comment on above: For patients on eltr ombopag therapy, use of Dimension [place] TBIL is not recommended. Chloride [Moles/Vol] 107 mmol/L 98-107 [facility] Cholesterol [Mass/Vol] 188 mg/dL <200 [facility] Comment on above: <200 mg/dL Desirable 200-240 mg/dL Borderline >240 mg/dL High Risk Glucose [Mass/Vol] 101 mg/dL 74-106 [facility] Comment on above: Fasting Glucose resu lt from 100 to 125 mg/dL suggests IMPAIRED HOMEOSTASIS per A.D.A. criteria. Potassium [Moles/Vol] 3.7 mmol/L 3.5-5.1 [facility] Protein [Mass/Vol] 7.5 g/dL 6.4-8.2 [facility] Sodium [Moles/Vol] 138 mmol/L 136-145 [facility] Triglyceride [Mass/Vol] 84 mg/dL <199 [facility] Comment on above: The drugs N-Acetylcy steine and Metamizole may falsely depress this assay.Serum Triglycerides Reference Interval Normal <150 mg/dL Borderline high 150 - 199 mg/dL High 200 - 499 mg/dL Very High > or = 500 mg/dL Erythrocyte sedimentation ra teOrdered By: Eron Martínez on 10-26-2022 ESR (Bld) [Velocity] 4 mm/h 0-30 [facility] Laboratory - Chemistry and C hemistry - challengeOrdered By: Eron Martínez on 10-26-2022 ALP [Catalytic activity/Vol] 74 U/L 45-117 [facility] ALT [Catalytic activity/Vol] 39 U/L 13-56 [facility] CO2 [Moles/Vol] 28.0 mmol/L 21.0-32.0 [facility] Globulin (S) [Mass/Vol] 3.8 g/dL 2.2-4.2 [facility] Urea nitrogen/Creatinine [Mass ratio] 16.1 mg/mg 10-20 [facility] No Panel InformationOrdered By: Eron Martínez on 10-26-2022 Anti-Nuclear Antibody Screen Negative Negative [facility] Comment on above: Performed at: [facility] [place] [id number] Director: Lm Barrera PhD, Phone: [phone] Estimated GFR (MDRD) Amer 76 mL/min >60 [facility] Comment on above: GFR Calc Estimated GFR (MDRD) Non-Af Amer 63 mL/min >60 [facility] Comment on above: Non- GFR Calc Thyroid Stimulating Hormone (TSH) 3.57 uIU/mL 0.358-3.74 [facility] Vitamin D 25-Hydroxy 29.9 ng/mL [facility] Comment on above: Vitamin D 25(OH) Sta tus Range Deficiency <20 ng/mL (50nmol/L) Insufficiency 20 - 30 ng/mL (50 - 75 nmol/L) Sufficiency 30 - 100 ng/mL (75 - 250 nmol/L) Toxicity >100 ng/mL (>250 nmol/L) Serum or plasma C reactive p rotein measurement (mass/volume)Ordered By: Eron Martínez on 10-26-2022 CRP [Mass/Vol] mg/L 0.0-3.0 [facility] Comment on above: C-Reactive Protein ( CRP) provides useful information for thediagnosis, therapy and monitoring of inflammatory processesand associated diseases. For the evaluation of Relative Riskfor Cardiovascular Disease, a High Sensitivity CRP (HSCRP)should be ordered. Serum or plasma albumin olesya urement (mass/volume)Ordered By: Eron Martínez on 10-26-2022 Albumin [Mass/Vol] 3.7 g/dL 3.2-5.0 [facility] Serum or plasma albumin/glob ulin mass ratioOrdered By: Eron Martínez on 10-26-2022 Albumin/Globulin [Mass ratio] 1.0 {ratio} 0.9-2.4 [facility] Serum or plasma calcium olesya urement (mass/volume)Ordered By: Eron Martínez on 10-26-2022 Calcium [Mass/Vol] 9.4 mg/dL 8.5-10.1 [facility] Serum or plasma cholesterol in HDL measurement (mass/volume)Ordered By: Eron Martínez on 10-26-2022 Cholesterol in HDL [Mass/Vol] 39 mg/dL >40 [facility] Comment on above: The drugs N-Acetylcy steine and Metamizole may falsely depress this assay. Reference Range HDL <40 mg/dL Low HDL Cholesterol HDL >or= 60 mg/dL High HDL Cholesterol Serum or plasma cholesterol in VLDL measurement (mass/volume)Ordered By: Eron Martínez on 10-26-2022 Cholesterol in VLDL [Mass/Vol] 17 mg/dL 5-40 [facility] Serum or plasma creatinine m easurement (mass/volume)Ordered By: Eron Martínez on 10-26-2022 Creatinine [Mass/Vol] 1.00 mg/dL 0.55-1.02 [facility] Comment on above: The validity of the calculated GFR & GFRAA in patients over 70 years has not been determined. Clinical correlation is essential. Serum or plasma low density lipoprotein (LDL) cholesterol measurement (mass/volume)Ordered By: Eron Martínez on 10-26-2022 Cholesterol in LDL [Mass/Vol] 132 mg/dL 0-130 [facility] Serum or plasma urea nitroge n measurement (mass/volume)Ordered By: Eron Martínez on 10-26-2022 Urea nitrogen [Mass/Vol] 16 mg/dL 7-18 [facility] Thin prep Papanicolaou smear with manual screeningOrdered By: Eron Martínez on 10-26-2022 Thin prep Papanicolaou smear with manual screening 32 U/L 15-37 [facility] Thin prep Papanicolaou smear with manual screening 3 5-15 [facility] Influenza virus A and B and SARS-CoV-2 (COVID-19) Ag panel - Upper respiratory specimOrdered By: Dr. Pryor on 05-29-2022 SARS-CoV-2 (COVID-19) RNA OSWALDO+probe Ql (Resp) [facility] Laboratory - Chemistry and C hemistry - challengeOrdered By: Dr. Narayanan on 05-20-2022 HCG ( test) Ql (U) Negative [facility] Comment on above: Very dilute urine sp ecimens, as indicated by a low specificgravity, may not contain contact representative levels of hCG. If is still suspected, a first morning urinespecimen should be collected 48 hours later and tested. Absolute lymphocyte counton 12-02-2021 Lymphocytes Auto (Unsp spec) [#/Vol] 2.98 10*3/uL 0.83-4.51 [facility] Work Phone: Basophil percentageon 2021 Basophil percentage 10-25 SEEN /hpf 0-5 [facility] Work Phone: Basophils/100 WBC (Bld) 0.4 % 0-1 [facility] Work Phone: [phone] Bilirubin [Mass/Vol] 0.40 mg/dL 0.20-1.00 [facility] Work Phone: Comment on above: For patients on eltr ombopag therapy, use of Dimension [place] TBIL is not recommended. Chloride [Moles/Vol] 103 mmol/L 98-107 [facility] Work Phone: Eosinophils/100 WBC (Bld) 2.7 % 0-5 [facility] Work Phone: Glucose [Mass/Vol] 117 mg/dL 74-106 [facility] Work Phone: Comment on above: Fasting Glucose resu lt from 100 to 125 mg/dL suggests IMPAIRED HOMEOSTASIS per A.D.A. criteria. Neutrophils (Bld) [#/Vol] 3.0 10*3/uL 2.0-7.7 [facility] Work Phone: Neutrophils/100 WBC (Bld) 44.4 % 47-70 [facility] Work Phone: Potassium [Moles/Vol] 3.3 mmol/L 3.5-5.1 [facility] Work Phone: Protein [Mass/Vol] 7.7 g/dL 6.4-8.2 [facility] Work Phone: Sodium [Moles/Vol] 138 mmol/L 136-[address] [facility] [facility] Work Phone: WBC (Bld) [#/Vol] 6.7 10*3/uL 4.4-11.0 [facility] Work Phone: Bilirubin Test strip Ql (U)o n 12-02-2021 Bilirubin Ql (U) Negative Negative [facility] Work Phone: Blood erythrocytes count (nu mber/volume)on 12-02-2021 RBC (Bld) [#/Vol] 4.54 10*6/uL 4.2-5.4 [facility] Work Phone: Blood hemoglobin measurement (mass/volume)on 12-02-2021 Hemoglobin (Bld) [Mass/Vol] 13.6 g/dL 12.0-15.0 [facility] Work Phone: Blood lymphocytes/100 leukoc yteson 12-02-2021 Lymphocytes/100 WBC (Bld) 44.2 % 19-41 [facility] Work Phone: Blood monocytes/100 leukocyt eson 12-02-2021 Monocytes/100 WBC (Bld) 8.0 % 0-10 [facility] Work Phone: Blood platelet mean volumeon 12-02-2021 Platelet mean volume (Bld) [Entitic vol] 10.1 fL 6.2-12.0 [facility] Work Phone: Determination of erythrocyte mean corpuscular volume (MCV)on 12-02-2021 MCV (RBC) [Entitic vol] 89.9 fL 81-99 [facility] Work Phone: Hematocrit Auto (Bld) [Volum e fraction]on 12-02-2021 Hematocrit (Bld) [Volume fraction] 40.8 % 37-47 [facility] Work Phone: Ketones Test strip Ql (U)on 12-02-2021 Ketones Ql (U) Negative Negative [facility] Work Phone: Laboratory - Chemistry and C hemistry - challengeon 12-02-2021 ALP [Catalytic activity/Vol] 86 U/L 45-117 [facility] Work Phone: [phone] ALT [Catalytic activity/Vol] 52 U/L 13-56 [facility] Work Phone: [phone] CO2 [Moles/Vol] 28.0 mmol/L 21.0-32.0 [facility] Work Phone: Globulin (S) [Mass/Vol] 3.9 g/dL 2.2-4.2 [facility] Work Phone: Urea nitrogen/Creatinine [Mass ratio] 16.6 mg/mg 10-20 [facility] Work Phone: Laboratory - Hematology and Cell countson 12-02-2021 Erythrocyte distribution width (RBC) [Entitic vol] 43.1 fL 35.1-43.9 [facility] Work Phone: Erythrocyte distribution width (RBC) [Ratio] 13.2 % 11.6-14.6 [facility] Work Phone: Immature granulocytes/100 WBC (Bld) 0.300 % 0.0-0.9 [facility] Work Phone: Comment on above: IG% - Immature Granu locytes (promyelocytes, myelocytes and metamyelocytes) > 1% indicates that a LEFT SHIFT is Present. MCH (RBC) [Entitic mass] 30.0 pg 27.0-32.0 [facility] Work Phone: Nucleated RBC/100 WBC (Bld) [Ratio] 0 % 0-5 [facility] Work Phone: MCHC Auto (RBC) [Mass/Vol]on 12-02-2021 MCHC (RBC) [Mass/Vol] 33.3 g/dL 32-36 [facility] Work Phone: Mucus LM Ql (Urine sed)on Mucus Ql (Urine sed) 0 SEEN /hpf [facility] Work Phone: Nitrite Test strip Ql (U)on 12-02-2021 Nitrite Ql (U) Negative Negative [facility] Work Phone: No Panel Informationon 12-02 Estimated GFR (MDRD) Amer 86 mL/min >60 [facility] Work Phone: Comment on above: GFR Calc Estimated GFR (MDRD) Non-Af Amer 71 mL/min >60 [facility] Work Phone: Comment on above: Non- GFR Calc Platelets bldon 12-02-2021 Platelets (Bld) [#/Vol] 244 10*3/uL 150-450 [facility] Work Phone: Protein Test strip Ql (U)on 12-02-2021 Protein Ql (U) Negative Negative [facility] Work Phone: Serum or plasma albumin olesya urement (mass/volume)on 12-02-2021 Albumin [Mass/Vol] 3.8 g/dL 3.2-5.0 [facility] Work Phone: Serum or plasma albumin/glob ulin mass ratioon 12-02-2021 Albumin/Globulin [Mass ratio] 1.0 {ratio} 0.9-2.4 [facility] Work Phone: Serum or plasma calcium olesya urement (mass/volume)on 12-02-2021 Calcium [Mass/Vol] 9.3 mg/dL 8.5-10.1 [facility] Work Phone: Serum or plasma creatinine m easurement (mass/volume)on 12-02-2021 Creatinine [Mass/Vol] 0.90 mg/dL 0.55-1.02 [facility] Work Phone: Comment on above: The validity of the calculated GFR & GFRAA in patients over 70 years has not been determined. Clinical correlation is essential. Serum or plasma urea nitroge n measurement (mass/volume)on 12-02-2021 Urea nitrogen [Mass/Vol] 15 mg/dL 7-18 [facility] Work Phone: Squamous epithelial cells de tection in urine sediment by light microscopyon 12-02-2021 Epithelial cells.squamous LM Ql (Urine sed) 5-10 SEEN /hpf 5-10 [facility] Work Phone: Thin prep Papanicolaou smear with manual screeningon 12-02-2021 Thin prep Papanicolaou smear with manual screening 33 U/L 15-37 [facility] Work Phone: Thin prep Papanicolaou smear with manual screening 7 5-15 [facility] Work Phone: Urine blood detectionon RBC Ql (U) Negative Negative [facility] Work Phone: RBC Ql (U) 0 SEEN /hpf 0-5 [facility] Work Phone: Urine clarityon 12-02-2021 Clarity (U) Sl. Cloudy Clear [facility] Work Phone: Urine color determinationon 12-02-2021 Color (U) Yellow Yellow [facility] Work Phone: Urine glucose detectionon Glucose Ql (U) Normal mg/dl Normal [facility] Work Phone: Urine leukocyte esterase det ection by dipstickon 12-02-2021 Leukocyte esterase Test strip Ql (U) 100 /ul Negative [facility] Work Phone: Urine pHon 12-02-2021 pH (U) 5.0 [pH] 5.0 - 8.0 [facility] Work Phone: Urine sediment bacteria coun t by microscopy (number/high power field)on 12-02-2021 Bacteria LM.HPF (Urine sed) [#/Area] 2 /[HPF] None Seen [facility] Work Phone: Urine specific gravity measu rementon 12-02-2021 Specific gravity (U) [Rel density] 1.025 1.002-1.030 [facility] Work Phone: Urobilinogen Auto test strip Ql (U)on 12-02-2021 Urobilinogen Ql (U) Normal mg/dl Normal [facility] Work Phone: Basophil percentageon 2021 Chloride [Moles/Vol] 105 mmol/L 98-107 [facility] Work Phone: Cholesterol [Mass/Vol] 210 mg/dL <200 [facility] Work Phone: Comment on above: <200 mg/dL Desirable 200-240 mg/dL Borderline >240 mg/dL High Risk Glucose [Mass/Vol] 119 mg/dL 74-106 [facility] Work Phone: Comment on above: Fasting Glucose resu lt from 100 to 125 mg/dL suggests IMPAIRED HOMEOSTASIS per A.D.A. criteria. Potassium [Moles/Vol] 3.6 mmol/L 3.5-5.1 [facility] Work Phone: Sodium [Moles/Vol] 139 mmol/L 136-145 [facility] Work Phone: Triglyceride [Mass/Vol] 200 mg/dL <199 [facility] Work Phone: Comment on above: The drugs N-Acetylcy steine and Metamizole may falsely depress this assay.Serum Triglycerides Reference Interval Normal <150 mg/dL Borderline high 150 - 199 mg/dL High 200 - 499 mg/dL Very High > or = 500 mg/dL Laboratory - Chemistry and C hemistry - challengeon 08-19-2021 CO2 [Moles/Vol] 28.0 mmol/L 21.0-32.0 [facility] Work Phone: Urea nitrogen/Creatinine [Mass ratio] 12.1 mg/mg 10-20 [facility] Work Phone: No Panel Informationon 08-19 Estimated GFR (MDRD) Amer 85 mL/min >60 [facility] Work Phone: Comment on above: GFR Calc Estimated GFR (MDRD) Non-Af Amer 70 mL/min >60 [facility] Work Phone: Comment on above: Non- GFR Calc Vitamin D 25-Hydroxy 19.2 ng/mL [facility] Work Phone: Comment on above: Vitamin D 25(OH) Sta tus Range Deficiency <20 ng/mL (50nmol/L) Insufficiency 20 - 30 ng/mL (50 - 75 nmol/L) Sufficiency 30 - 100 ng/mL (75 - 250 nmol/L) Toxicity >100 ng/mL (>250 nmol/L) Serum or plasma calcium olesya urement (mass/volume)on 08-19-2021 Calcium [Mass/Vol] 9.2 mg/dL 8.5-10.1 [facility] Work Phone: Serum or plasma cholesterol in HDL measurement (mass/volume)on 08-19-2021 Cholesterol in HDL [Mass/Vol] 35 mg/dL >40 [facility] Work Phone: Comment on above: The drugs N-Acetylcy steine and Metamizole may falsely depress this assay. Reference Range HDL <40 mg/dL Low HDL Cholesterol HDL >or= 60 mg/dL High HDL Cholesterol Serum or plasma cholesterol in VLDL measurement (mass/volume)on 08-19-2021 Cholesterol in VLDL [Mass/Vol] 40 mg/dL 5-40 [facility] Work Phone: Serum or plasma creatinine m easurement (mass/volume)on 08-19-2021 Creatinine [Mass/Vol] 0.91 mg/dL 0.55-1.02 [facility] Work Phone: Comment on above: The validity of the calculated GFR & GFRAA in patients over 70 years has not been determined. Clinical correlation is essential. Serum or plasma low density lipoprotein (LDL) cholesterol measurement (mass/volume)on 08-19-2021 Cholesterol in LDL [Mass/Vol] 135 mg/dL 0-130 [facility] Work Phone: Serum or plasma urea nitroge n measurement (mass/volume)on 08-19-2021 Urea nitrogen [Mass/Vol] 11 mg/dL 7-18 [facility] Work Phone: Thin prep Papanicolaou smear with manual screeningon 08-19-2021 Thin prep Papanicolaou smear with manual screening 6 5-15 [facility] Work Phone: CNOVon 09-15-2018 CNOV Office Visit (GENSWS ) MACRINA ALMONTE ([id number]) 1975 F Date Time Provider Department 09/15/18 [...] primary physician for medical care. Referring Provider: [facility] [[id number]] Allergies As of Date: 09/15/2018 (No Known [...] by MD MELODIE RIDLEY on 09/24/18 Normal [facility] PROGRESSon 09-15-2018 Protein mass conc HNO ID: [id number] Author: Melodie Ridley Service: ? Author Type: [...] her primary physician for medical care. Normal [facility] CNOVon 08-25-2018 CNOV Office Visit (GENSWS ) MACRINA ALMONTE ([id number]) 1975 F Date Time Provider Department 08/25/18 10:10 AM RIDLEY, MELODIE TONY GENSWS During your visit today, we recorded the [...] for medical care. Referring Provider: MELODIE RIDLEY [[id number]] Allergies As of Date: 08/25/2018 (No Known Allergies) Date Reviewed: 08/25/2018 Reviewed by: Melodie Ridley - Fully Assessed Reason for Visit: Post Op [174] Cmt: post op Appy Primary Visit Diagnosis:Status post laparoscopic appendectomy [Z90.49] Prescriptions as of 08/25/2018 Sig: LISINOPRIL 10 MG-HYDROCHLOROT* hydroCHLOROthiazide / Lisinop* VENLAFAXINE ER 75 MG CAPSULE,* 75 mg. Problem List As Of Date: 08/25/2018 (None) Encounter Status:Closed by MD MELODIE RIDLEY on 08/25/18 Normal [facility] PROGRESSon 08-25-2018 Protein mass conc HNO ID: [id number] Author: Melodie Ridley Service: ? Author Type: [...] her primary physician for medical care. Normal [facility] Vital Signs Date Time Vital Sign Value Performing Clinician Efren lopes 12-14-2024 08:57-0400 Body height 160.[address] Vahe Martínez MD Work Phone: 5(601)037-303778 [place] [address] 12-14-2024 08:55-0400 Body mass index (BMI) [Ratio] 39 kg/m2 Dr. Vahe Martínez MD Work Phone: 0(440)276-171278 [place] [address] 12-14-2024 08:55-0400 Body weight 100.[address] Vahe Martínez MD Work Phone: 6(744)687-194978 [place] [address] 12-14-2024 08:55-0400 Diastolic blood pressure 93 mm[Hg] Dr. Vahe Martínez MD Work Phone: 0(754)353-518578 [place] [address] 12-14-2024 08:55-0400 Systolic blood pressure 137 mm[Hg] Dr. Vahe Martínez MD Work Phone: 1(432)205-977478 [place] [address] 12-01-2022 15:23-0400 Body height 157.[address] Eron Martínez Work Phone: 0(027)692-205278 [place] [address] 12-01-2022 15:23-0400 Body mass index (BMI) [Ratio] 41.3 kg/m2 Dr. Eron Martínez Work Phone: 4(978)905-880978 [place] [address] 12-01-2022 15:23-0400 Body weight 102.[address] Eron Martínez Work Phone: 2(249)938-688978 [place] [address] 12-01-2022 15:23-0400 Diastolic blood pressure 86 mm[Hg] Dr. Eron Martínez Work Phone: 2(416)271-423078 [place] [address] 12-01-2022 15:23-0400 Systolic blood pressure 128 mm[Hg] Dr. Eron Martínez Work Phone: 1(225)780-394378 [place] [address] 05-28-2022 23:24-0500 Body height 157.[address] Eron Martínez Work Phone: 6(543)832-189178 [place] [address] 05-28-2022 23:24-0500 Body mass index (BMI) [Ratio] 42 kg/m2 Dr. Eron Martínez Work Phone: 4(952)367-053678 [place] [address] 05-28-2022 23:24-0500 Body temperature 97.5 [degF] Dr. Eron Martínez Work Phone: [facility] 05-28-2022 23:24-0500 Body weight 104.[address] Eron Martínez Work Phone: [facility] 05-28-2022 23:24-0500 Diastolic blood pressure 115 mm[Hg] Dr. Eron Martínez Work Phone: [facility] 05-28-2022 23:24-0500 Heart rate 116 /min Dr. Eron Martínez Work Phone: [facility] 05-28-2022 23:24-0500 Respiratory rate 20 /min Dr. Eron Martínez Work Phone: [facility] 05-28-2022 23:24-0500 SaO2% (BldA) [Mass fraction] 97 % Dr. Eron Martínez Work Phone: [facility] 05-28-2022 23:24-0500 Systolic blood pressure 187 mm[Hg] Dr. Eron Martínez Work Phone: [facility] 05-20-2022 07:14-0500 Body temperature 98.5 [degF] Dr. Eron Martínez Work Phone: [facility] 05-20-2022 07:14-0500 Diastolic blood pressure 96 mm[Hg] Dr. Eron Martínez Work Phone: [facility] 05-20-2022 07:14-0500 Heart rate 95 /min Dr. Eron Martínez Work Phone: [facility] 05-20-2022 07:14-0500 Respiratory rate 18 /min Dr. Eron Martínez Work Phone: [facility] 05-20-2022 07:14-0500 SaO2% (BldA) [Mass fraction] 96 % Dr. Eron Martínez Work Phone: [facility] 05-20-2022 07:14-0500 Systolic blood pressure 124 mm[Hg] Dr. Eron Martínez Work Phone: [facility] 05-20-2022 06:06-0500 Body height 160.[address] Eron Martínez Work Phone: [facility] 05-20-2022 06:06-0500 Body mass index (BMI) [Ratio] 41.3 kg/m2 Dr. Eron Martínez Work Phone: [facility] 05-20-2022 06:06-0500 Body weight 105.[address] Eron Martínez Work Phone: [facility] 11-26-2021 15:26-0400 Body height 160.[address] Eron Martínez Work Phone: [facility] Work Phone: 11-26-2021 15:25-0400 Body mass index (BMI) [Ratio] 42.1 kg/m2 Dr. Eron Martínez Work Phone: [facility] Work Phone: 11-26-2021 15:25-0400 Body weight 107.[address] Eron Martínez Work Phone: [facility] Work Phone: 11-26-2021 15:25-0400 Diastolic blood pressure 122 mm[Hg] Dr. Eron Martínez Work Phone: [facility] Work Phone: 11-26-2021 15:25-0400 Systolic blood pressure 164 mm[Hg] Dr. Eron Martínez Work Phone: [facility] Work Phone: Encounters Encounter Date Encounter Type Care Provider Facility Start: 12-14-2024 End: 12-14-[address] Chasity Mclaughlin DO [facility] Start: 12-14-2024 End: 12-14-[address] Vahe Martínez MD Work Phone: -[facility] Start: 12-14-2024 End: 12-14-[address] Chasity Mclaughlin DO -[facility] Work Phone: Start: 12-14-2024 End: 12-14-2024 ambulatory Chasity Mclaughlin Facility:[facility] Start: 06-21-2024 End: 06-21-2024 Subsequent hospital visit by physician [facility] Comment on above: Impaired fasting glu cose; Bronchitis, not specified as acute or chronic; Essential (primary) hypertension Start: 06-21-2024 End: 06-21-2024 [facility] Start: 08-29-2023 End: 08-29-2023 ambulatory [facility] Work Phone: Start: 08-29-2023 End: 08-29-2023 Patient encounter procedure [facility] Work Phone: Start: 12-03-2022 End: 12-03-[address] Eron Martínez Work Phone: [facility] Work Phone: Start: 12-03-2022 End: 12-03-[address] Eron Martínez Work Phone: [facility] Work Phone: Start: 12-01-2022 End: 12-01-[address] Eron Martínez Work Phone: [facility] Work Phone: Start: 10-26-2022 End: 10-26-2022 ambulatory [facility] Work Phone: Start: 10-26-2022 End: 10-26-2022 Patient encounter procedure [facility] Work Phone: Start: 05-28-2022 End: 05-29-2022 Emergency department patient visit Dr. Eron Martínez Work Phone: [facility] Start: 05-20-2022 Non-patient / Non-visit Dr. Felecia Martínez Work Phone: [facility] Start: 05-20-2022 End: 05-20-2022 Admission to same day surgery center Dr. Eron Martínez Work Phone: [facility] Start: 05-20-2022 End: 05-20-[address] Eron Martínez Work Phone: [facility] Work Phone: Start: 12-02-2021 End: 12-02-[address] Eron Martínez Work Phone: [facility] Start: 11-26-2021 End: 11-26-[address] Eron Martínez Work Phone: [facility] Start: 11-20-2021 End: 11-20-2021 Patient encounter procedure [facility] Start: 08-19-2021 End: 08-19-2021 Patient encounter procedure [facility] Procedures Date Procedure Procedure Detail Performing Clinician Start: 12-14-2024 Screening mammography Feng Martínez MD Work Phone: Start: 12-03-2022 Screening mammography Feng Martínez Work [...] DTaP/Tdap/Td Vaccines (2 - Td or Tdap) [facility] Start: 12-14-2024 MG Breast - bilatera l Screening [facility] Start: 12-14-2024 Screening mammography SCRN PHUONG M (CAD)W/AMITA BILAT [facility] Start: 2024 Zoster Vaccines (1 of 2) Zoste r Vaccines (1 of 2) [facility] Start: 01-01-2024 COVID-19 Vaccine ( season) COVID-19 Vaccine ( season) [facility] Start: 01-01-2024 Influenza vaccination Influenz a Vaccine (#1) [facility] Start: 05-28-2022 [facility] Start: 05-20-2022 Patient discharge [facility] Start: 12-02-2021 [facility] Work Phone: Start: 2014 Screening for malign ant neoplasm of breast Mammogram [facility] Start: 09-04-1995 Screening for malign ant neoplasm of cervix [facility] Start: 1993 Hepatitis B Vaccines (1 of 3 - 19+ 3-dose series) Hepatitis B Vaccines (1 of 3 - 19+ 3-dose series) [facility] Start: 1992 Hepatitis C screening Hepatiti s C Screening [facility] Start: 09-04-1975 MMR Vaccines (1 of 1 - Standard series) MMR Vaccines (1 of 1 - Standard series) [facility] Start: 1974 HIV screening [facility] Start: 1974 Lipid panel Lipid Panel [facility] Start: 1974 Screening for malign ant neoplasm of colon [facility] Start: 1974 Yearly Adult Physical Yearly A dult Physical [facility] End: 06-21-2024 CT for calcium scoring WO contrast and CTA W contrast IV Heart and coronary arteries [facility] Service Area Work Phone: Comment on above: Once for 1 Occurrenc es starting 06/21/2024 until 06/21/2024 DNA double strand Ab [Units/volume] in Serum [facility] Work Phone: Liquid based cervica l cytology screening [facility] MG Breast - bilatera l Screening [facility] Work Phone: Nuclear Ab [Titer] i n Serum by Immunofluorescence [facility] Work Phone: Patient Education ED Upper Resp Infec Abx Tx [facility] Work Phone: Patient referral [facility] Work Phone: Urine test [facility] Immunizations Immunization Date Immunization Notes Care Provider Fa sofi 02-12-2015 influenza virus vacc ine, unspecified formulation [facility] Work Phone: Payers Date Payer Category Payer Self-pay [id number] 2023 Managed Care (Private) JOSEFA Agnieszka [facility] [id number] 2023 Private Health Insurance [id number] 1975 Unknown [id number] Unknown [id number] Unknown [id number] Unknown [id number] Social History Date Type Detail Facility Tobacco smoking status NHIS Unknown if ever smoked [facility] Work Phone: Start: 1975 Sex Assigned At Female [facility] Start: 11-06-2020 End: 04-28-2023 Tobacco smoking status NHIS Unknown if ever smoked [facility] Start: 1975 Sex assigned at Not on file [facility] Work Phone: Gender identity Not on file [facility] Work [facility]: Start: 06-11-2024 End: 06-21-2024 Exposure to SARS-CoV-2 (event) Not sure [facility] Start: 12-14-2024 Tobacco smoking status NHIS Never smoked tobacco (finding) [facility] NEGATED: Highlighted row [facility] Medical Equipment Procedure Code Equipment Code [...] Assessment Result Facility 05-20-2022 Cognitive function Voice/Name [facility] Work Phone: Clinical Notes 05-20-2022 to 12-14-2024 Note Date & Type Note Facility 12-14-2024 Evaluation note Diagnosis Onset Date Resolution Encounter for routine gynecological examination noneactive December 14 8:50am [facility] Work Phone: [phone]) 262-699401-19-2023 [facility] [facility] noteNo assessment information availableWBar[facility] Work Phone: Evaluation note* Diagnosis Onset Date Resolution Status Encounter for routine gynecological examination noneactive [facility] Work Phone: Evaluation note* Diagnosis Onset Date Resolution Status Encounter for screening for malignant neoplasm of colo n acute [facility] Work Phone: Evaluation note* Diagnosis Impaired fasting glucose Bronchitis, not specified as acute or chronic Essential (primary) hypertension Unspecified essential hypertension documented in this encounter [facility] Work Phone: Evaluation note* Diagnosis Onset Date Resolution Status Admit Date Encounter for routine gynecological examination noneactive December 14, 2024 8:50am [facility] Work Phone: History and physical note Author Julio Luke [facility] May 20, 2022 6:36am Note Date/Time May 20, 2022 6 :36am [facility] Medical Records Department [address] [place] [address] History & Physical Exam 05/20/22 0635 MR#: [id number] Acct: [id number] Name: MACRINA ALMONTE CON Rep #:[id number] : 1975 46 From: Julio Luke DO PCP: Dr. Eron Martínez MD Status: [facility] Location: [place] [address] HPI - General General Date of Admission: 05/20/22 Date of Service: 05/20/22 Chief Complaint: Screening colonoscopy ZOE ALMONTE, is a 46 F who presents today for screening colonoscopy. She has not had a colonoscopy in the past. She does not have any abdominal pain. She not have any bleeding. Is not having any chest pain shortness of breath. Overall she is in very good health. [facility] Medical History Gastric reflux Hypertension Internal hemorrhoids [...] additional social history: Barrett early 2021 at [facility] [place] Patient works at [employer] ROS Review of Systems ROS Unobtainable: other [...] Eron Martínez MD; Julio Luke DO~ Signed [facility] Work Phone: Reason for referral (narrative)No reason for referral [facility] Work Phone: Reason for visit Narrative* Imaging (Routine) - Pending Review Specialty Diagnoses / Procedures Referred By Contac t Referred To Contact Radiology Diagnoses Impaired fasting glucose Bronchitis, not specified as acute or chronic Essential (primary) hypertension Procedures CT cardiac scoring wo IV contrast Vahe Martínez MD [address] [place] [address] Phone: tel: fax: Referral ID Status Reason Start Date Expiration Date Visits Requested Visits Authorized [id number] Pending Review Perform Procedure 05/15/2024 05/15/2025 1 1 [facility] Work Phone: Summary Purpose Family History No Family History Records Found Relationship Condition Age at Onset Recorded Date/T josé luis mother Hypertension Unknown aunt Malignant neoplasm of cervix Unknown Advance Directives No Advanced Directives Records Found Advance Directive Response Recorded Date/ Time Living Will No August 19, 2018 9:27pm Power of Flower Picker No August 19 9:27pm Advance Directive Response Recorded Date/ Time Living Will No May 17 12:28pm Power of Flower Picker No May 17, 2022 12:28pm Advance Directive Response Recorded Date/ Time Living Will No May 29 12:39am Power of Flower Picker No May 29, 2022 12:39am Advance Directive Response Recorded Date/ Time Living Will No May 29 1:39am Power of Flower Picker No May 29, 2022 1:39am Chief Complaint and Reason for Visit Chief Complaint SCREENING Chief Complaint SCREENING Annual (MEDIA DIRECTOR) Reason for Visit Encounter for routin e gynecological examination Reason for Visit Encounter for screen ing for malignant neoplasm of colon Chief Complaint COUGH Reason for Visit Encounter for screen ing for malignant neoplasm of colon Chief Complaint E ORDERS Chief Complaint E ORDERS Annual (MEDIA DIRECTOR) SCREENING Reason for Visit Encounter for routin e gynecological examination Chief Complaint Admit Date screen for breast cancer December 14 8:21am Annual (MEDIA DIRECTOR) December 14, 2024 8: 50am Reason for Visit Admit Date Encounter for routine gynecological exam ination December 14, 2024 8:50am Additional Source Comments INFORMATION SOURCE (unrecogn ized section and content) DATE CREATED AUTHOR 10/08/2018 [facility] DATE CREATED AUTHOR AUTHOR'S ORGANIZ ATION 06/28/2024 [facility] DATE CREATED AUTHOR AUTHOR'S ORGANIZ ATION 12/22/2024 [facility] Goals (unrecognized section and content) Goals [...] Attending Provider, Referring Provider Active Team Status: Active Member Role/Relationship Status Dates Dr. Vahe Martínez MD Primary Care Provider Acti ve Team Status: Active Member Role/Relationship Status Dates Dr. Vahe Martínez MD Primary Care Provider Acti ve Start: December 14, 2024 Dr. Chasity Mclaughlin DO Attending Provider Activ e Start: December 14, 2024 Dr. Chasity Mclaughlin DO Referring Provider Activ e Start: December 14, 2024 Team Status: Inactive Member Role/Relationship Status Dates Dr. Vahe Martínez MD Primary Care Provider Acti ve Start: December 14, 2024 End: December 14, 2024 Dr. Vahe Martínez MD Referring Provider Active Start: December 14, 2024 End: December 14, 2024 Dr. Chasity Mclaughlin DO Attending Provider Activ e Start: December 14, 2024 End: December 14, 2024 Team Status: Inactive Member Role/Relationship Status Dates Dr. Vahe Martínez MD Primary Care Provider Acti ve Start: December 14, 2024 End: December 14, 2024 Dr. Chasity Mclaughlin DO Attending Provider Activ e Start: December 14, 2024 End: December 14, 2024 Dr. Chasity Mclaughlin DO Referring Provider Activ e Start: December 14, 2024 End: December 14, 2024 FOR RECORDS PERTAINING TO PATIENTS WHO ARE [...] BE BASED ON THE PRIMARY CLINICAL RECORDS. [employer] provides no warranty or guarantee of the accuracy or completeness of information in this document.
[2025-02-23 09:00] LABS: Anion Gap 9 (5-15); BUN 15 mg/dL (4-19); BUN/Creat Ratio 15.7 RATIO (10-20); Calcium,Total 9.3 mg/dL (7.6-11.0); Carbon Dioxide 27.3 mmol/L (21.0-32.0); Chloride 105 mmol/L (98-108); Cholesterol 173 mg/dL (<=200); Glucose 100 mg/dL (70-99); Low Density Lipoprotein Calc. 118 mg/dL; Potassium 4.2 mmol/L (3.3-5.1); Triglycerides 117 mg/dL; Very Low Density Lipoprotein 23 mg/dL (5-40); Vitamin D,25 Hydroxy 46.0 ng/mL (30-100); cholesterol:hdl ratio screen 5.15
== END | disposition home or self-care (01) ==
LOC: LAB 07:50
PROVIDERS: PCP Family Medicine; Referring Provider Family Medicine; Visit Provider Family Medicine
DX: R73.01 Impaired fasting glucose (principal)
CPT/HCPCS: 36415; 80048; 80061; 82306